=== PATIENT | female | born 1940 | race Caucasian/White ===

== ENCOUNTER 2020-07-26 11:30 | Emergency (ER) | payer MEDICARE, OTHER, SELFPAY ==
[2020-07-26 11:41] VITALS: BP 159/58; PULSE 71; RESP 20; TEMP 36.6; O2SAT 100
--- NOTE | 2020-07-26 12:22 | PC.NURSE ---
Bethanie Encarnacion NP spoke with Adriana at [facility]
--- NOTE | 2020-07-26 12:23 | ED.GENADULT ---
HPI - General Adult General Chief complaint: Unspecified Stated complaint: took her pets medication Source: patient Mode of arrival: ambulatory Limitations: no limitations History of Present Illness HPI narrative: Patient presents for evaluation after she unintentionally took a capsule of her dog's medication this morning. She indicates that her dog has an underlying history of Pageton's and is currently on trilostane 30mg. Patient was in attention and to her dog's medication, thinking that it was her own. Total intake was 30 mg, which occurred about 1 hour ago. Patient reports feeling fuzzy but denies any chest pain, shortness of breath, nausea, vomiting, loss of appetite. She denies any other concerning symptoms. She contacted the dog's top executive who advised that she reach out to a medical professional to determine whether she needs any type of diagnostic testing or intervention. Related Data Home Medications Medication Instructions Recorded Confirmed apixaban 5 mg tablet 5 mg PO BID 08/06/19 07/26/20 diltiazem HCl 120 mg capsule,24 120 mg PO DAILY 08/06/19 07/26/20 hr,extended release lisinopril 5 mg tablet 5 mg PO DAILY 08/06/19 07/26/20 pantoprazole 40 mg tablet,delayed 40 mg PO QAM 08/06/19 07/26/20 release sotalol 80 mg tablet 80 mg PO BID tablet 08/06/19 07/26/20 rosuvastatin 5 mg tablet 5 mg PO DAILY 05/07/20 07/26/20 Allergies Allergy/AdvReac Type Severity Reaction Status Date / Time Sulfa (Sulfonamide Allergy Mild Unknown Verified 05/07/20 15:03 Antibiotics) Review of Systems Review of Systems: Narrative: CONSTITUTIONAL: Denies fever, chills, or sweats. EYES: Denies visual changes, redness, or discharge. ENT: Denies rhinorrhea, congestion, sore throat, or otalgia. CARDIOVASCULAR: Denies chest pain, palpitations, or edema. RESPIRATORY: Denies cough or dyspnea. GASTROINTESTINAL: Denies abdominal pain, nausea, vomiting, or diarrhea. GENITOURINARY: Denies dysuria or hematuria. SKIN: Denies rash or itching. MUSCULOSKELETAL: Denies back pain, joint pain, or myalgia. NEUROLOGIC: Reports feeling fuzzy . Denies headache, numbness, dizziness, or weakness. PSYCHIATRIC: Denies anxiety or depression. [facility] Past Medical History Medical History (Updated 07/26/20 @ 12:34 by MARY PlunkettP, ) Atrial fibrillation Hyperlipidemia Hypertension Lumbar spinal stenosis Thyroid nodule Surgical History Surgical History History of hysterectomy Family History Family History Mother Hypertension Sibling Acute myocardial infarction Father Family history of lung cancer Social History Social History Smoking status: Former smoker Second hand tobacco smoke exposure: No Smoking end date: 09/18/71 Alcohol intake: current Substance use: never Substance use type: does not use Gender identity (if verbalized by the patient): Female Spiritual care concerns: No Agree to blood products: Yes Exam Narrative: Exam Narrative: GENERAL: Well-appearing, well-nourished, and in no acute distress. HEAD: Normocephalic, atraumatic. EYES: PERRLA and EOMI. ENT: Nares clear, no rhinorrhea or epistaxis. Mucous membranes moist. Oropharynx without tonsillar hypertrophy exudate or other lesions. Bilateral TMs pearly rossi nonbulging NECK: Supple. No adenopathy or masses. No carotid bruits or JVD CHEST: Clear to auscultation. No respiratory distress. No wheezes rales or rhonchi HEART: Regular rate and rhythm. No murmur heard. Normal peripheral pulses. ABDOMEN: Soft, nontender, nondistended, normal active bowel sounds. EXTREMITIES: Normal range of motion. No edema. SKIN: Warm, dry, no rash. NEURO: No focal deficits. Alert and oriented x3. PSYCH: Normal mood and affect. Course Course Emergency Course: Spoke with macho
--- NOTE | 2020-07-26 12:26 | PC.NURSE ---
Adriana at poison control no treatment needed
== END 2020-07-26 12:36 | disposition home or self-care (01) ==
PROVIDERS: Emergency Provider Nurse Practitioner; PCP Family Medicine
DX: T38 Poisoning by, adverse effect of and underdosing of hormones and their synthetic substitutes and antagonists, not elsewhere classified (principal); I48.91 Unspecified atrial fibrillation; E78.5 Hyperlipidemia, unspecified; I10 Essential (primary) hypertension; M48.061 Spinal stenosis, lumbar region without neurogenic claudication; Z87.891 Personal history of nicotine dependence
CPT/HCPCS: 99211; G0463

== ENCOUNTER 2021-04-01 11:44 | Outpatient (CLI) | payer MEDICARE, OTHER, SELFPAY ==
--- NOTE | ~2021-04-01 | XR_ITS ---
EXAMINATION: XR chest 2V DATE: 04/01/2021 12:02 INDICATION: Shortness of breath. TECHNIQUE: Frontal and lateral views of the chest were obtained. COMPARISON: Chest 2 views 03/11/2019 FINDINGS: The chest demonstrates clear lungs without pneumonia, pleural effusion, or pneumothorax. Th e heart size is normal. There are prominent paracardial fat pads. IMPRESSION: 1. No acute cardiopulmonary disease. Reviewed, dictated and finalized at location A.
== END 2021-04-01 11:45 | disposition home or self-care (01) ==
PROVIDERS: PCP Family Medicine; Visit Provider Physician Assistant
DX: R06.02 Shortness of breath (principal)
CPT/HCPCS: 71046

== ENCOUNTER 2021-09-27 14:54 | Emergency (ER) | payer MEDICARE, OTHER, SELFPAY ==
[2021-09-27] VITALS (9 sets, daily range): BP systolic 176–220; BP diastolic 48–78; PULSE 57–78; RESP 18; TEMP 36.2–36.3; O2SAT 97–100
--- NOTE | ~2021-09-27 | CT_ITS ---
EXAMINATION: CTA brain carotid DATE: 09/27/2021 21:05 INDICATION: Dizziness and posterior headache TECHNIQUE: Computed tomographic angiography (CTA) of the head was performed without and with 100 mL O mnipaque-350 intravenous contrast. CTA of the neck was performed with intravenous contrast. The dose- length product was 1472.08 mGy-cm. Maximum intensity projection and volume rendered 3D-reconstruction s were created by the technologist on a separate workstation. Automated exposure control and iterativ e reconstruction technique were employed. COMPARISON: None. FINDINGS: HEAD CTA: There is no acute intraparenchymal hemorrhage. No evidence of mass lesion. No evidence of a cute infarction. There is mild periventricular and subcortical hypodensity probably related to small vessel ischemic disease. There is mild prominence of the sulci and ventricles related to cerebral atr ophy. Intracranial calcified cerebral atherosclerosis is noted. There are no extra-axial collections. There is no mass effect or midline shift. The orbits and soft tissues are unremarkable. The visualiz ed sinuses and mastoid air cells are well aerated. There is no significant stenosis of the basilar artery or posterior cerebral arteries. There is no si gnificant stenosis of the intracranial internal carotid arteries or the anterior or middle cerebral a rteries. The anterior communicating artery and posterior communicating arteries are normal. There is no aneurysm. NECK CTA: The thyroid gland is unremarkable. The submandibular and parotid glands are symmetric. Ther e is no lymphadenopathy. There are no masses identified. The airway is unremarkable. There is is mode rate thoracic spondylosis. The superior mediastinum is unremarkable. There is 0% stenosis of the proximal right internal carotid artery relative to normal distal artery l umen diameter (NASCET criteria). There is 0% stenosis of the proximal left internal carotid artery re lative to normal distal artery lumen diameter. IMPRESSION: 1. No acute intracranial abnormality. Normal head CTA. 2. 0% stenosis of the proximal right internal carotid artery relative to normal distal artery lumen d iameter (NASCET criteria). 3. 0% stenosis of the proximal left internal carotid artery relative to normal distal artery lumen di ameter. Reviewed, dictated and finalized at location F. IALIST FIELD ENGINEER IMPRESSION: 1. No acute intracranial abnormality. Normal head CTA. 2. 0% stenosis of the proximal right internal carotid artery relative to normal distal artery lumen diameter (NASCET criteria). 3. 0% stenosis of the proximal left internal carotid artery relative to normal distal artery lumen diameter.
--- NOTE | 2021-09-27 18:53 | ECG_ITS ---
Measurements Intervals Nimitz Rate: 60 P: 74 GA: 184 QRS: 19 QRSD: 78 T: -10 QT: 458 QTc: 458 Interpretive Statements SINUS RHYTHM BORDERLINE T WAVE ABNORMALITY- ANTEROLAT/INF LEADS BASELINE WANDER- I, II, III, V3 BORDERLINE ECG Electronically Signed On 09-27-2021 20:05:33 ELEVATOR RUNNER by Jackson Razo D.O.
--- NOTE | 2021-09-27 19:00 | PC.NURSE ---
Assuming care of pt.
--- NOTE | 2021-09-27 19:01 | PC.NURSE ---
States i just took my bp meds
[2021-09-27] MEDS: ONDANSETRON INJ 4 MG/2 ML VIAL IV PUSH (19:10)
--- NOTE | 2021-09-27 19:23 | ED.DIZZY ---
HPI - Dizziness General Chief Complaint: Dizziness Stated Complaint: nausea/bonilla/nausea/fall months ago Time Seen by Provider: 09/27/21 18:35 Source: patient, RN notes reviewed and old records reviewed Mode of arrival: ambulatory Limitations: no limitations History of Present Illness HPI Narrative: This is an 80 year old female with history of hypertension, atrial fibrillation on chronic anticoagulation who presents for evaluation of posterior headache. Patient states 2-3 months ago she fell backwards hitting the back of her head. She had LOC after that fall but she was not evaluated after her fall. For the past 2 months, she has been having left posterior head pain when she tries to lay back. She also reports dizziness and nausea with laying back. She denies neck pain, focal weakness, numbness or tingling. She also denies visual changes or diplopia. She denies chest pain, cough, sinus congestion or drainage. She reports taking Tylenol causes her head pain to resolve. Related Data Home Medications Medication Instructions Recorded Confirmed apixaban 5 mg tablet 5 mg PO BID 08/06/19 04/01/21 diltiazem HCl 120 mg capsule,24 120 mg PO DAILY 08/06/19 04/01/21 hr,extended release lisinopril 5 mg tablet 5 mg PO DAILY 08/06/19 04/01/21 pantoprazole 40 mg tablet,delayed 40 mg PO QAM 08/06/19 04/01/21 release sotalol 80 mg tablet 80 mg PO BID tablet 08/06/19 04/01/21 rosuvastatin 5 mg tablet 5 mg PO DAILY 05/07/20 04/01/21 Allergies Allergy/AdvReac Type Severity Reaction Status Date / Time Sulfa (Sulfonamide Allergy Mild Hives Verified 09/27/21 19:05 Antibiotics) Review of Systems Review of Systems: All systems reviewed & are unremarkable except as noted in HPI and below PMFSH Past Medical History Medical History (Updated 09/28/21 @ 00:00 by Kerry Ambrocio) Atrial fibrillation Hyperlipidemia Hypertension Lumbar spinal stenosis Thyroid nodule Surgical History Surgical History History of hysterectomy Family History Family History Mother Hypertension Sibling Acute myocardial infarction Father Family history of lung cancer Social History Social History Smoking status: Never smoker Second hand tobacco smoke exposure: No Smoking end date: 09/18/71 Alcohol intake: current Alcohol use details: Rarely. Substance use: never Substance use type: does not use Gender identity (if verbalized by the patient): Female Sexual Orientation (if Verbalized by the Patient): Straight or Heterosexual Spiritual care concerns: No Agree to blood products: Yes Exam Const: General: no acute distress and alert Orientation/consciousness: patient oriented x3 HENMT: Head: normocephalic and atraumatic Ears: TM's normal bilaterally General nose exam: Normal external nose present, Normal nares present and No nasal polyps present Face and sinus: normal facial exam, sinuses nontender and face symmetric Mouth: Yes Normal oral and palatal mucosa present, Yes lip normal, Yes oropharynx normal and Yes moist mucous membranes Throat: posterior oropharynx normal Eyes: Pupils: Equal, round and reactive pupils present EOM: EOMs intact bilaterally Neck: Neck: normal visual inspection Chest: Chest palpation & inspection: normal inspection of the chest Resp: Effort & Inspection: normal respiratory effort and no retractions Auscultation: clear to auscultation bilaterally Cardio: Rate: regular rate Rhythm: regular rhythm Heart sounds: no murmurs GI: GI Palp: Yes Soft to palpation, No Tenderness to palpation present (GI) and No Guarding due to palpation present (GI) Auscultation: normal bowel sounds Back/Spine/Pelvis: Back: no CVA tenderness Skin: General skin exam: normal color Rashes: no rashes Neuro: General: jw
[2021-09-27 19:39] LABS: Basophils Percent Auto 0.3 % (0.2-1.2); Eosinophils Absolute Auto 0.1 K/mm3 (0-0.3); Eosinophils Percent Auto 0.8 % (0-4.4); Hematocrit 45.2 % (37.0-47.0); Hemoglobin 15.3 g/dL (12.0-15.0); Immature Granulocyte Absolute 0.03 K/mm3 (0.00-0.031); Immature Granulocyte Percent A 0.3 % (0-0.5); Lymphocytes Percent Auto 33.6 % (18.3-44.2); Mean Corpuscular HGB Conc 33.8 g/dl (32-36); Mean Corpuscular Hemoglobin 31.9 pg (26-34); Mean Corpuscular Volume 94.4 fl (80-100); Monocytes Absolute Auto 0.7 K/mm3 (0.1-0.6); Monocytes Percent Auto 7.5 % (2.6-8.5); Neutrophils Absolute Auto 5.3 K/mm3 (1.3-6.7); Neutrophils Percent Auto 57.5 % (45.5-73.1); Platelet Count Result 189 k/mm3 (150-375); Red Blood Count 4.79 M/mm3 (4.2-5.4); Red Cell Distribution Width 14.6 % (11.5-14.5); White Blood Count 9.2 K/mm3 (4.5-10.0)
[2021-09-27 20:31] LABS: Alanine Aminotransferase 21 U/L (4-35); Alkaline Phosphatase 64 U/L (38-126); Anion Gap 10 mmol/L (8-16); Aspartate Amino Transferase 34 U/L (14-36); Bilirubin,Total 0.8 mg/dL (0.2-1.3); Blood Urea Nitrogen 11 mg/dL (7-17); Calcium 9.4 mg/dL (8.4-10.2); Carbon Dioxide 21 mmol/L (22-30); Chloride 104 mmol/L (98-107); Estimated CRCL calculation 36 ml/min; Estimated Glomerular Filt Rate 60; Glucose 109 mg/dL (65-110); Lipase 76 U/L (23-300); Potassium 3.9 mmol/L (3.4-5.0); Sodium 135 mmol/L (137-145)
[2021-09-27 20:32] LABS: INR 1.5; Prothrombin Time 18.2 Seconds (11.1-14.7)
[2021-09-27 20:33] LABS: Partial Thromboplastin Time 33.6 SECONDS (22.3-36.8)
[2021-09-27 20:43] LABS: Troponin I < 0.012 ng/mL (0.000-0.034)
[2021-09-27 22:12] LABS: Add Urine Microscopic? YES; Appearance Urine Clear (Clear); Bacteria Urine Trace /hpf; Bilirubin Urine Negative (Negative); Blood Urine 1+ (Negative); Color Urine Yellow (Yellow); Glucose Urine UA Negative (Negative); Ketones Urine 1+ mg/dL (Negative); Leukocyte Esterase Ur Negative LEU/UL (Negative); Mucus Urine Rare /lpf; Nitrate Urine Positive (Negative); Protein Urine Negative (Negative); RBC Urine 0-2 /hpf (0-2); Squamous Epithelial Cell Urine Occasional /hpf (Few); Urobilinogen Urine Negative mg/dL (<2.0)
[2021-09-27 22:13] LABS: Specific Grav Ur 1.045 (1.001-1.035)
[2021-09-27] MEDS: NITROFURANTOIN MONOHYD MACROCR 100 MG CAP PO (22:48)
[2021-09-27] MEDS: MECLIZINE HCL 25 MG TABLET PO (22:48)
== END 2021-09-27 23:13 | disposition home or self-care (01) ==
PROVIDERS: Emergency Provider General Practice; PCP Family Medicine
DX: I10 Essential (primary) hypertension (principal); R42 Dizziness and giddiness; N39.0 Urinary tract infection, site not specified; I48.91 Unspecified atrial fibrillation; E78.5 Hyperlipidemia, unspecified; Z79.01 Long term (current) use of anticoagulants; R94.31 Abnormal electrocardiogram [ECG] [EKG]
CPT/HCPCS: 36415; 70496; 70498; 80053; 81001; 83690; 84484; 85025; 85610; 85730; 87077; 87086; 87186; 93005; 96374; 96375; 99284; A9270; J0131; J2405; Q9967

== ENCOUNTER 2021-10-15 09:09 | Day surgery (SDC) | payer MEDICARE, OTHER, SELFPAY ==
[2021-10-15] VITALS (12 sets, daily range): BP systolic 129–174; BP diastolic 45–69; PULSE 57–66; RESP 13–20; TEMP 37.2; O2SAT 98–100; BMI 27.4; BMI 27.5
[2021-10-15] MEDS: SODIUM CHLORIDE 0.9% IV 500 ML 100 ML IV CONT (09:45)
[2021-10-15 09:57] LABS: Basophils Absolute Auto 0.1 K/mm3 (0.0-0.1); Basophils Percent Auto 0.5 % (0.2-1.2); Eosinophils Absolute Auto 0.1 K/mm3 (0-0.3); Eosinophils Percent Auto 0.8 % (0-4.4); Hemoglobin 14.5 g/dL (12.0-15.0); Immature Granulocyte Absolute 0.04 K/mm3 (0.00-0.031); Immature Granulocyte Percent A 0.4 % (0-0.5); Lymphocytes Absolute Auto 2.44 K/mm3 (0.9-3.2); Lymphocytes Percent Auto 24.8 % (18.3-44.2); Mean Corpuscular Hemoglobin 31.7 pg (26-34); Mean Corpuscular Volume 96.1 fl (80-100); Monocytes Absolute Auto 0.7 K/mm3 (0.1-0.6); Neutrophils Absolute Auto 6.5 K/mm3 (1.3-6.7); Neutrophils Percent Auto 66.5 % (45.5-73.1); Platelet Count Result 236 k/mm3 (150-375); Red Blood Count 4.58 M/mm3 (4.2-5.4); Red Cell Distribution Width 14.9 % (11.5-14.5); White Blood Count 9.8 K/mm3 (4.5-10.0)
--- NOTE | 2021-10-15 09:58 | WPDHPUPDATE1 ---
History and Physical Update Update Date/Time: 10/15/21 09:58 History and Physical has been reviewed, including an updated exam of the patient. There are NO changes in the patient's condition. Risks, benefits, and alternatives have been discussed and questions answered. Patient agrees to proceed with procedure.
--- NOTE | 2021-10-15 09:58 | WPDMODSED ---
Moderate Sedation Note-Pt Data Patient Data Diagnosis: Abnormal stress test, angina Present Complaint: none Procedure to be performed/Plan: left heart catheterization with selective left and right coronary angiography with left ventriculography and hemodynamics and possible percutaneous intervention and stent implantation. Allergies Allergy/AdvReac Type Severity Reaction Status Date / Time Sulfa (Sulfonamide Allergy Mild Hives Verified 10/15/21 09:38 Antibiotics) Home Medications Medication Instructions Recorded Confirmed Type apixaban 5 mg tablet 5 mg PO BID 08/06/19 10/15/21 History diltiazem HCl 120 mg capsule,24 120 mg PO DAILY 08/06/19 10/15/21 History hr,extended release lisinopril 5 mg tablet 10 mg PO DAILY 08/06/19 10/15/21 History pantoprazole 40 mg tablet,delayed 40 mg PO QAM 08/06/19 10/13/21 History release sotalol 80 mg tablet 80 mg PO BID tablet 08/06/19 10/15/21 History rosuvastatin 5 mg tablet 5 mg PO DAILY 05/07/20 10/13/21 History Current Medications: Active Medications Sodium Chloride (Normal Saline Iv) 500 mls @ 100 mls/hr IV CONT .Q5H KAYLAH Sedation/Anesthesia: No previous sedation/anesthesia problems (including family history). [facility] Past Medical History Medical History Atrial fibrillation Cervical spondylosis Hyperlipidemia Hypertension Lumbar spinal stenosis Thyroid nodule Surgical History Surgical History History of hysterectomy Family History Family History Mother Hypertension Sibling Acute myocardial infarction Father Family history of lung cancer Social History Social History Years smoked: 8 Tobacco type: cigarettes Second hand tobacco smoke exposure: Yes (father smoked) Smoking end date: 09/18/71 Alcohol intake: current Alcohol use details: Rarely. Substance use: never Substance use type: does not use Living arrangements: with family Gender identity (if verbalized by the patient): Female Sexual Orientation (if Verbalized by the Patient): Straight or Heterosexual Spiritual care concerns: No Agree to blood products: Yes Mod Sed Physical Exam Physical Exam Pre Procedural Exam: Normal: Appearance, Eyes, Ears, Nose, Neck ( supple, normal range of motion), Throat ( posterior hypopharynx clear, nonerythematous), Airway ( normal anatomy, no obstruction), Lungs ( Clear to auscultation bilaterally), Heart Size, Heart Rate, Heart Rhythm, Neuro Exam, Abdomen, Liver, Extremities and Skin Hours since solid foods: 12 Hours since liquid intake: 12 Mallampati Classification: class III Internal Medicine - PN: Obj Da Meds/Results Medications: Active Medications Generic Name Dose Route Start Last Admin Trade Name Freq PRN Reason Stop Dose Admin Sodium Chloride 500 mls @ 100 mls/hr 10/15/21 08:00 Normal Saline Iv IV CONT .Q5H KAYLAH Labs CBC & Chem 7: 10/15/21 09:43 10/15/21 09:43 ASA Classification/Sedation ASA Classification/Sedation ASA Class: III Emergent: No Risks: Risks, benefits and alternatives explained and patient/family accepted plan for sedation. Patient re-evaluated immediately prior to sedation.
--- NOTE | 2021-10-15 10:00 | PM.OP ---
Procedure Note - Brief Procedure Note - Brief Date of procedure: 10/15/21 Pre-op diagnosis: abnormal stress test angina, abnormal stress test Post-op diagnosis: same Procedure performed: Left heart catheterization with selective left and right coronary angiography with left ventricular hemodynamics Description of procedure: BRIEF HISTORY OF PRESENT ILLNESS: Patient is a pleasant 80-year-old female with a past medical history significant for paroxysmal atrial fibrillation sotalol and Eliquis, hypertension, dyslipidemia, history of normal coronary anatomy 1987, heart catheterization, normal stress test 2018 with complaints of worsening fatigue, dyspnea and chest pain who underwent repeat Lexiscan nuclear stress test which revealed apical lateral and mid anterolateral reversible ischemia with abnormal EKG response consistent with ischemia. Options for escalation of antianginal medical management versus invasive angiography discussed and patient preferred to proceed with angiography given her level of concern. PROCEDURES PERFORMED: 1. Left heart catheterization 2. Selective left and right coronary angiography 3. Left ventricular hemodynamics 4. Moderate/conscious sedation administration CATHETERS UTILIZED: Left coronary system- 5 Finnish JL4 catheter Right coronary system- 5 Finnish JR4 catheter Left ventriculography and hemodynamics- 5 Finnish angled pigtail catheter PROCEDURE IN DETAIL: After verbal and written informed consent was obtained the patient, risks, benefits, and alternatives explained in detail the patient agreed to proceed with the plan of care as outlined above. The patient was subsequently brought to the cardiac catheterization lab, placed on the cardiac catheterization table, and prepped and draped in the usual sterile fashion. Utilizing approximately 12cc of 1% subcutaneous Lidocaine, the right groin was then locally anesthetized. Utilizing the modified Seldinger technique, a 5 Finnish arterial vascular access sheath was inserted in the right common femoral artery easily and without complications. Through this access, coronary angiography was subsequently obtained in multiple standard re-projections. Following this, a 5 Finnish angled pigtail catheter was advanced retrograde across aortic valve into the cavity of the left ventricle. Left ventriculography was not performed due to significant catheter induced NSVT and ventricular ectopy. Therefore, it was felt risk with advancement of pigtail catheter with left ventriculography outweighed the benefit so was deferred. As she tolerated placement of the pigtail catheter near the LVOT pressures were obtained and pullback across aortic valve was subsequently recorded. The vascular access sheath and angiographic catheters were flushed before and after catheter exchanges. At the conclusion of the diagnostic portion of the procedure, all angiographic guidewires and catheters were removed and the 5 Finnish arterial vascular access sheath was then pulled and satisfactory hemostasis was achieved using manual compression. There no complications noted at the conclusion of the diagnostic portion of the study. MODERATE SEDATION/ANESTHESIA ADMINISTRATION: Patient reports no prior problems with sedation/anesthesia. Please see pre-sedation noted for physical examination documentation. Sedation start time was 1039 and end time was 1059 for a total intra-service/procedure face-face time of 20 minutes. A total of 1 mg intravenous Versed and a total of 50 mcg intravenous Fentanyl was administered for moderate sedation. Moderate sedation was administered by qualified/certified observer Peter Eagle RN under my supervision with intra-procedure [id number] observation and management throughout the entirety of the procedure. There were no other issues or complications and patient tolerated the procedure well. See post-anesthesia documentation. Anesthesia: regional and other ( Moderate/conscious sed
[2021-10-15 10:07] LABS: Anion Gap 5 mmol/L (8-16); Blood Urea Nitrogen 16 mg/dL (7-17); Calcium 9.6 mg/dL (8.4-10.2); Carbon Dioxide 29 mmol/L (22-30); Chloride 105 mmol/L (98-107); Estimated CRCL calculation 41 ml/min; Estimated Glomerular Filt Rate > 60; Glucose 136 mg/dL (65-110); Potassium 4.1 mmol/L (3.4-5.0); Sodium 139 mmol/L (137-145)
[2021-10-15 10:11] LABS: INR 0.9; Prothrombin Time 12.3 Seconds (11.1-14.7)
[2021-10-15] MEDS: SODIUM CHLORIDE 0.9% IV 1,000 ML 125 ML IV CONT (11:45)
--- NOTE | 2021-10-15 15:05 | SUR.PHASEII ---
notified of d/c time and location.
== END 2021-10-15 15:58 | disposition home or self-care (01) ==
PROVIDERS: PCP Family Medicine; Visit Provider Internal Medicine Cardiovascular Disease
PROC: 4A023N7 Measurement of Cardiac Sampling and Pressure, Left Heart, Percutaneous Approach (ICD-10-PCS; CPT 93452; principal; 2021-10-15 10:00)
DX: R94.39 Abnormal result of other cardiovascular function study (principal); Q24.5 Malformation of coronary vessels; Z79.01 Long term (current) use of anticoagulants; I10 Essential (primary) hypertension; I25.10 Atherosclerotic heart disease of native coronary artery without angina pectoris; R53.83 Other fatigue; R07.89 Other chest pain; M47.812 Spondylosis without myelopathy or radiculopathy, cervical region; E78.5 Hyperlipidemia, unspecified; M48.061 Spinal stenosis, lumbar region without neurogenic claudication; E04.9 Nontoxic goiter, unspecified; F17.210 Nicotine dependence, cigarettes, uncomplicated; R06.02 Shortness of breath; M79.89 Other specified soft tissue disorders
CPT/HCPCS: 36415; 80048; 85025; 85610; 93458; C1887; C1894; J1644; J2250; J3010; J7030; J7040

== ENCOUNTER → 2022-03-22 12:57 | Outpatient (CLI) | payer MEDICARE, OTHER, SELFPAY ==
--- NOTE | ~2022-03-22 | MR_ITS ---
EXAMINATION: MR lumbar spine wo con DATE: 03/22/2022 13:40 INDICATION: Spinal stenosis. Lumbar radiculopathy. TECHNIQUE: Magnetic resonance imaging (MRI) of the lumbar spine was performed without intravenous con trast. Sequences included sagittal T2-weighted FSE, sagittal T2-weighted FS FSE, sagittal T1-weighted FSE, and axial T2-weighted FSE. COMPARISON: 10/18/2017 FINDINGS: 3 mm retrolisthesis L2 on L3, 2 mm anterolisthesis L3 on L4, 5 mm anterolisthesis L4 on L5, and 3-4 m m retrolisthesis L5 on S1. Mild likely physiologic anterior wedging at T11 and T12. Lumbar vertebral body heights are normal. Normal marrow signal. Moderate loss of disc height at T11-T12, T12-L1 and L 4-L5 and L5-S1. Mild disc height loss at L2-L3, L3-L4 and L5-S1. The conus medullaris terminates at L 1-L2. There is normal signal in the caudal spinal cord. Bilateral T2 hyperintense renal cysts the lar gest and at least 4.3 cm partially visualized left renal cyst there is fatty atrophy of the lumbar an d lower thoracic paraspinal musculature, right greater than left at the level of the upper lumbar spi ne. The following disc levels are specifically discussed: T12-L1: Disc is bulging. There is mild left and mild to moderate right facet joint osteoarthritis. Th ere is no neural foraminal stenosis. There is mild central canal stenosis. L1-L2: The disc does not extend beyond the endplate margin. There is mild left and mild to moderate r ight facet joint osteoarthritis. There is no neural foraminal stenosis. There is no central canal cindy nosis. L2-L3: Disc is bulging. There is hypertrophy of the ligamentum flavum. There is mild right and minima l left facet joint osteoarthritis. There is mild to moderate bilateral neural foraminal stenosis. The re is mild central canal stenosis. L3-L4: Disc is bulging with superimposed annular fissure and small left paracentral disc extrusion wi th disc material extending up to 9 mm cephalad to the level of the inferior endplate of L3. There is hypertrophy of the ligamentum flavum. There is severe bilateral facet joint osteoarthritis. There is mild to moderate bilateral neural foraminal stenosis. There is moderate to severe central canal sten osis. L4-L5: Disc is bulging. There is hypertrophy of the ligamentum flavum. There is severe bilateral fac et joint osteoarthritis. There is moderate bilateral neural foraminal stenosis. There is severe centr al canal stenosis. L5-S1: Disc is bulging with superimposed annular fissure and right paracentral disc extrusion with di sc material extending 9 mm caudal to the level of the superior endplate of S1. There is moderate righ t and mild to moderate left facet joint osteoarthritis. There is moderate right and mild to moderate left neural foraminal stenosis. There is mild central canal stenosis. IMPRESSION: 1. Moderate to severe lumbar and lower thoracic spondylosis most notable for 5 mm anterolisthesis L4 on L5 and severe associated central canal stenosis. Reviewed, dictated and finalized at location A.
== END ==
PROVIDERS: PCP Family Medicine; Visit Provider Family Medicine
DX: M48.061 Spinal stenosis, lumbar region without neurogenic claudication (principal); M47.26 Other spondylosis with radiculopathy, lumbar region; M47.894 Other spondylosis, thoracic region
CPT/HCPCS: 72148

== ENCOUNTER 2022-07-08 10:49 | Outpatient (CLI) | payer MEDICARE, OTHER, SELFPAY ==
--- NOTE | ~2022-07-08 | US_ITS ---
EXAMINATION: US aorta DATE: 07/08/2022 12:08 INDICATION: Abdominal aortic pulsation. TECHNIQUE: Grayscale, color Doppler, and pulsed Doppler images of the aorta and common iliac arteries were obtained. COMPARISON: None. FINDINGS: The proximal aorta measures 2.4 cm. The mid aorta measures 1.7 cm. The distal aorta measures 1.2 cm. The right common iliac artery measures 9 mm. The left common iliac artery measures 9 mm. IMPRESSION: 1. Normal caliber abdominal aorta. Reviewed, dictated and finalized at location A.
== END 2022-07-08 10:50 | disposition home or self-care (01) ==
LOC: ANHIMG 10:53
PROVIDERS: PCP Family Medicine; Visit Provider Physician Assistant Medical
DX: R10.13 Epigastric pain (principal); R09.89 Other specified symptoms and signs involving the circulatory and respiratory systems
CPT/HCPCS: 76775

== ENCOUNTER → 2023-04-11 13:44 | Outpatient (CLI) | payer MEDICARE, OTHER, SELFPAY ==
--- NOTE | ~2023-04-11 | DEXA_ITS ---
Bone Density Report Name: EVELYN VERONICA V Age: 82 Sex: Female Ethnicity: White Date of : 1940 Indication: postmenopausal; screening for osteoporosis; height loss; hysterectomy; Referring Provider: INO ARMENTA Study: Bone densitometry was performed. Exam Date: April 11, 2023 Accession number: [id number] Bone Density: Region BMD T-score Z-score Classification AP Spine (L1-L4) 1.224 1.6 4.4 Normal Femoral Neck (Left) 0.844 0.0 2.4 Normal Total Hip (Left) 0.995 0.4 2.6 Normal Femoral Neck (Right) 0.809 -0.4 2.1 Normal Total Hip (Right) 0.949 0.1 2.2 Normal Total Hip Mean 0.972 0.3 2.4 Normal World Health Organization criteria for BMD impression classify patients as: Normal (T-score at or above -1.0), Osteopenia (T-score between -1.0 and -2.5), or Osteoporosis (T-score at or below -2.5). 10-year Fracture Risk: FRAX not reported because: All T-scores for Spine Total, Hip Total, Femoral Neck at or above -1.0 Clinical Information Provided by Patient: Has the following medical conditions: Hysterectomy Patient maximum height was 62 Menopause Age: 46 No regular weight bearing exercise Onset of menses at age 11 Number of children 2 Impression: The patient has normal bone mass. Discussion: LOW RISK OF FRACTURE; BONE DENSITY IS WELL ABOVE THE MINIMUM DESIRABLE LEVEL AND ABOVE AVERAGE FOR AGE AND SEX AT ALL SKELETAL SITES TESTED. This person's bone density is above expected limits for age and sex. This is rarely clinically significant, but should be pursued if there are significant musculoskeletal complaints. The patient should follow a healthful lifestyle (good nutrition with adequate calcium and vitamin D, and appropriate weight-bearing exercise). Follow-Up: Consider repeating this study in 5 years or sooner if there is some new clinical indication. Reported by: [facility] on 04/11/2023 2:13:00 PM. Reviewed, dictated and finalized at location AHeather BREWER
== END ==
PROVIDERS: PCP Family Medicine; Visit Provider Family Medicine
DX: Z78.0 Asymptomatic menopausal state (principal)
CPT/HCPCS: 77080

== ENCOUNTER 2023-08-30 12:30 | Outpatient (RCR) | payer MEDICARE, OTHER, SELFPAY ==
--- NOTE | 2023-07-25 15:30 | OPREHPOC ---
Outpatient Therapy Plan of Care This is a Multidisciplinary Plan of Care that may contain components documented by all disciplines (PT, OT, and ST.) PT Problem 1 PT Problem #1 Knowledge Deficit PT Goal 1 Goal 1*indep with HEP PT Problem 2 PT Problem #2 Pain PT Goal 1 Goal 1* pt report cervical pain 4/10 at worst PT Problem 3 PT Problem #3 Impaired Flexibility PT Goal 1 Goal pt perform 3 reps without an increase in pain, cervical ROM in sittin* extension 2* rotation R 3* rotation L PT Problem 4 PT Problem #4 Impaired Strength PT Goal 1 Goal increase cervical thoracic strength: 1* pt able to sit unsupported x 20 seconds 2* pt perform 10 reps of sitting strengthening exercises --------- 3* monitor vestibular system during sessions and treatment as indicated
--- NOTE | 2023-07-25 15:31 | PTOPEVAL1 ---
Assessment and note entered by Angelika Grande, PT Evaluation Information Assessment Status Evaluation Diagnosis dizziness Onset March 2023 Subjective Information no recent trauma or injury, just started having problems with looking up to move drapes; have seen investigations manager cleared her with meds and check up recently; had CTA of head was negative; about 1 year ago, fell and hit her head on concrete; general dr- looked at her ears and sent her for therapy; symptoms: dizzy increase with looking up, quickly turn head to R or L, bend forward OK with watching TV, up/down stairs; decreased with hold head neutral and stay still ACTIVITY: use cane for walking all the time; indep with self care; more problems with home tasks--is looking for house keeper assist; she is not able to do heavier tasks, with reaching up with arms- cuts off her breathing and cannot do; vitals: pt reports she takes her BP at home, range of 125 to 165/ 51-80; sitting/rest 153/ 51 and HR 77; standing 132/64 Reported Pain Level Pain Score Self Report Additional Pain Score Comments pain range of 3-8/10 in neck; have migraines, 1-2 x/month sometimes with brushing her teeth, have pain in L jaw; goes to the dentist every 6 months for teeth cleaning; Assessment PT Clinical Summary Delisa has the diagnosis of vertigo. Her medical history includes neck pain, migraines, back pain, L jaw pain, fall with hitting her head on concrete about 1 year ago; She is taking 6 meds for: blood thinner, cholesterol, HTN, acid reflux; She uses a cane for walking and is unsteady; discussed wheeled walker with her and she may consider using it. With the evaluation: BPPV testing was negative; she has poor neck and trunk positioning with tightness over entire cervical-thoracic area, and painful motions of her n
--- NOTE | 2023-08-11 10:12 | PCPTNOTE ---
Patient called this morning to cancel secondary to feeling ill.
--- NOTE | 2023-08-30 13:37 | PTOPPROG ---
Assessment and note entered by Angelika Grande, PT Evaluation Information Assessment Status Progress Diagnosis dizziness Onset March 2023 Subjective Information having a bad day, overdid it yesterday and trying to do more; back is hurting more--to see pain management dr and get injections tomorrow; still having dizziness- when look up into cabinet or reach down to pet the dog; last few seconds then gone; vitals at rest, sitting: pulse 69, oxygen sat 100 % 127/47 ( reports last night before bedtime, her BP was 167/ 80, did not take it this AM, she has been monitoring at home) repeated vitals~ 10 min later 136/46; Assessment PT Clinical Summary Delisa has received 9 PT sessions for dizziness and cervical pain. She continues to have low back pain and weakness of trunk. Compared to the initial evaluation: pain has decreased from 3-8/10 to 0-6/10; continues to have pain with cervical extension, rotation to R and L ; cervical active motion ranges are about the same ; sitting balance without UE support has increase from 2 to 6 seconds; continues to have weakness of her UE's and trunk, with reports of cannot breathe when she sits up straight; continues to have spasms throughout cervical and upper traps areas; pain is decreased with the heat and manual therapy. She has been educated on HEP and sitting posture. The goals were partially met. Her back pain and decreased mobility are affecting her neck. She continues to have dizziness reports with leaning forward in standing and reaching up to her cabinets, feel that they are related to positional changes and BP changes: BP at rest is 136/46. Delisa is to see her pain management dr tomorrow. Discussed with her to request a PT order for her back, to include aquatic therapy to ease the movements and strengthening of her back and trunk. Will continue treatment for her neck and when back orders received, incorporate back treatment. Plan of Care Interventions Hot Pack/Cold Pack,Manual Therapy,Mechanical Traction,Neuro Re-education,Pat
--- NOTE | 2023-08-30 13:38 | OPREHPOC ---
Outpatient Therapy Plan of Care This is a Multidisciplinary Plan of Care that may contain components documented by all disciplines (PT, OT, and ST.) PT Problem 1 PT Problem #1 Knowledge Deficit PT Goal 1 Goal 1*indep with HEP Progress Met Comment 08-30-23 progress met goal continue towards goal to progress education PT Problem 2 PT Problem #2 Pain PT Goal 1 Goal 1* pt report cervical pain 4/10 at worst Progress Not Met Comment 08-30-23 progress improved but goal not met continue towards goal PT Problem 3 PT Problem #3 Impaired Flexibility PT Goal 1 Goal pt perform 3 reps without an increase in pain, cervical ROM in sittin* extension 2* rotation R 3* rotation L Progress Not Met Comment 08-30-23 progress goal not met continue towards goals PT Problem 4 PT Problem #4 Impaired Strength PT Goal 1 Goal increase cervical thoracic strength: 1* pt able to sit unsupported x 20 seconds 2* pt perform 10 reps of sitting strengthening exercises --------- 3* monitor vestibular system during sessions and treatment as indicated Progress Not Met Comment 08-30-23 progress goals not met continue towards goals
--- NOTE | 2023-09-20 12:37 | PCPTNOTE ---
Pt cancelled due to having a stroke.
--- NOTE | 2023-10-10 11:50 | PTOPDC ---
Assessment and note entered by Angelika Grande, PT Evaluation Information Assessment Status Discharge - Pt Not Present Diagnosis dizziness Onset March 2023 Assessment PT Clinical Summary Delisa has received 9 PT sessions, from Jul 25 to Aug 30. She called and canceled 2 appointments due to her being ill. Then did not call for any further appointments. Therefore, she will be discharged from PT at this time. The goals were not addressed. Plan of Care PT Services Indicated No
== END 2023-10-10 09:25 | disposition home or self-care (01) ==
LOC: ANHPT 12:30
PROVIDERS: PCP Family Medicine; Visit Provider Family Medicine
DX: R42 Dizziness and giddiness (principal)
CPT/HCPCS: 97014; 97110; 97140; 97162; 97530; G0283

== ENCOUNTER 2024-02-03 08:37 | Outpatient (CLI) | payer MEDICARE, OTHER, SELFPAY ==
--- NOTE | ~2024-02-03 | MR_ITS ---
EXAMINATION: MR lumbar spine wo con DATE: 02/03/2024 09:20 INDICATION: Lumbar radiculopathy. Chronic low back pain. TECHNIQUE: Magnetic resonance imaging (MRI) of the lumbar spine was performed without intravenous con trast. Sequences included sagittal T2-weighted FSE, sagittal T2-weighted FS FSE, sagittal T1-weighted FSE, and axial T2-weighted FSE. COMPARISON: Lumbar spine MRI 03/22/2022 FINDINGS: There is 3 mm retrolisthesis of T12 on L1 and L2 on L3, 3 mm anterolisthesis of L3 on L4, a nd 5 mm anterolisthesis of L4 on L5. There is mild chronic anterior wedging of T11 and T12 vertebral bodies. There is moderately decreased disc height at T11-T12 and T12-L1, severely decreased disc heig ht at L2-L3, moderately decreased disc height at L3-L4 and L4-L5, and severely decreased disc height at L5-S1. There is ligamentum flavum hypertrophy at the disc levels from L2-L3 through L4-L5. The dis santino spinal cord signal intensity is normal. The conus medullaris is at L1. There are cysts in the kid neys measuring up to 6.0 cm on the left. The following disc levels are specifically discussed: L1-L2: The disc does not extend beyond the endplate margin. There is moderate bilateral facet joint o steoarthritis. There is no neural foraminal stenosis. There is no central canal stenosis. L2-L3: The disc is bulging and has an annular fissure. There is mild bilateral facet joint osteoarthr itis. There is mild bilateral neural foraminal stenosis. There is mild central canal stenosis. L3-L4: The disc is bulging and has an annular fissure. There is severe bilateral facet joint osteoart hritis. There is mild bilateral neural foraminal stenosis. There is mild central canal stenosis. L4-L5: The disc is bulging and has an annular fissure. There is severe bilateral facet joint osteoart hritis. There is mild bilateral neural foraminal stenosis. There is severe central canal stenosis. L5-S1: The disc is bulging with superimposed right subarticular zone extrusion. There is severe right and mild left facet joint osteoarthritis. There is mild bilateral neural foraminal stenosis. There i s mild central canal stenosis. IMPRESSION: 1. Severe lumbar spondylosis, stable from 03/22/2022. Reviewed, dictated and finalized at location A.
== END 2024-02-03 08:38 ==
PROVIDERS: PCP Neurological Surgery; Visit Provider Physical Medicine & Rehabilitation Pain Medicine
DX: M54.16 Radiculopathy, lumbar region (principal); M43.06 Spondylolysis, lumbar region
CPT/HCPCS: 72148

== ENCOUNTER 2024-02-05 13:30 | Outpatient (RCR) | payer MEDICARE, OTHER, SELFPAY ==
--- NOTE | 2023-11-07 13:35 | OPREHPOC ---
Outpatient Therapy Plan of Care This is a Multidisciplinary Plan of Care that may contain components documented by all disciplines (PT, OT, and ST.) PT Problem 1 PT Problem #1 Knowledge Deficit PT Goal 1 Goal 1* indep with HEP 2* correct body mechanics with exercises PT Problem 2 PT Problem #2 Pain PT Goal 1 Goal 1* pt report back pain at worst of 5/10 2* radicular pain into R LE to knee at worst 3* radicular pain into L LE to mid thigh at worst 4* self assessment Oswestry score of 32% limitation in activity level PT Problem 3 PT Problem #3 Impaired Strength PT Goal 1 Goal increase strength to improve activity level and support to spine 1* 2 minute walking test distance of 300' 2* 5 reps sit/stand time of 24 seconds, without use of UE's 3* pt perform 20 reps of strengthening mat exercises 4* pt perform 40 minutes of aquatic exercises
--- NOTE | 2023-11-07 13:35 | PTOPEVAL1 ---
Assessment and note entered by Angelika Grande, PT Evaluation Information Assessment Status Evaluation Diagnosis lumbar spondylosis, lumbar radicular pain Onset 2016 Subjective Information chronic pain in back, continues to get worse; is not able to have surgery on her back; go to pain management dr--last injection Oct. cannot stand up straight, legs are weak, balance is not good; recent therapy for back pain--helped a little; ACTIVITY: use wheeled walker when going out of the house and cane in the house; assisting her PRN, recently disabled, she is now doing all cooking and home tasks; Reported Pain Level Pain Score Self Report Additional Pain Score Comments pain range in the past week: 1-8/10; intermittent into R LE to lateral ankle/ L to posterior thigh to distal knee; back is broken, cannot straighten it up increase pain: stand up straight; stand upright 2 minutes; walking 15- 20 min; reaching up with arms when in the kitchen decrease pain: sit, rest, tylenol PRN;heat, lie flat in bed is sleeping OK Assessment PT Clinical Summary Delisa has two orders from 2 different providers: lumbar spondylosis and vestibular rehab. She reports dizziness is almost gone and back is bothering her the most. Self assessment Oswestry rating 44% of limitation in activity level. Using the 4 wheeled walker helps her walk more and stand more upright. With the evaluation: she has radicular, intermittent into both legs R to ankle and L to below knee; decreased strength of trunk and legs; 5 reps sit/stand time of 34 seconds, 2 minute walking distance with wheeled walker of 225' with increase in back and leg pain; decreased flexibility of R and L hamstrings; Skilled PT services are indicated for aquatic and land therapy to increase ROM and strength; modalities for pain control and education for HEP and self management of c
--- NOTE | 2023-12-18 15:34 | PCPTNOTE ---
pt did not show for her reevaluation, called her and she had forgotten about the appt; she apologized and rescheduled appt.
--- NOTE | 2023-12-28 11:52 | OPREHPOC ---
Outpatient Therapy Plan of Care This is a Multidisciplinary Plan of Care that may contain components documented by all disciplines (PT, OT, and ST.) PT Problem 1 PT Problem #1 Knowledge Deficit PT Goal 1 Goal 1* indep with HEP 2* correct body mechanics with exercises Progress Met Comment 12-28-23 progress met goals continue to progress education and HEP PT Problem 2 PT Problem #2 Pain PT Goal 1 Goal 1* pt report back pain at worst of 5/10 2* radicular pain into R LE to knee at worst 3* radicular pain into L LE to mid thigh at worst 4* self assessment Oswestry score of 32% limitation in activity level Progress Not Met Comment 12-28-23 progress goals not achieved, continue towards goals PT Problem 3 PT Problem #3 Impaired Strength PT Goal 1 Goal increase strength to improve activity level and support to spine 1* 2 minute walking test distance of 300' 2* 5 reps sit/stand time of 24 seconds, without use of UE's 3* pt perform 20 reps of strengthening mat exercises 4* pt perform 40 minutes of aquatic exercises Progress Met Comment 12-28-23 progress met goals NEW GOALS: 1* static sit at edge of mat with upright trunk, without use of UE, for 30 seconds 2* static stand without use of UE and upright trunk x 60 seconds 3* 2 minute walking test distance of 375' with rollator walker 4* sit/stand 5 reps time of 19 seconds
--- NOTE | 2023-12-28 11:53 | PTOPPROG ---
Assessment and note entered by Angelika Grande, PT Progress Information Assessment Status Progress Diagnosis lumbar spondylosis, lumbar radicular pain Onset 2016 Subjective Information saw pain dr and have been referred to neurologist because legs are getting weaker; from therapy have improved with able to stand up better and walk better; have been trying to do the exercises as much as I can, but busy with and caring for him. back pain is less since got the shot, to have shot for R hip January 05; at home use the cane or nothing and when go out, use the rollator; want to continue therapy as long as I can; Assessment PT Clinical Summary Delisa has received 10 PT sessions. Compared to the initial evaluation: rating at low for pain from 1 to 0/10 and worst is same at 8/10 with radicular pain same into R and L LE; self assessment Oswestry rating from 44 to 40% limitation; 5 reps sit/stand time from 34 to 23 seconds; 2 minute walking test distance from 225' to 320' with rollator; increase LE and trunk strength--able to stand upright and sit upright without UE support; education for home exercises. The goals were partially met. Continue PT for land and aquatic to further increase strength and mobility skills. Plan of Care Interventions Aquatic Therapy,Electrical Stimulation,Hot Pack/ Cold Pack,Manual Therapy,Mechanical Traction,Neuro Re-education,Patient Education, Therapeutic Activities,Therapeutic Exercise, Ultrasound,Other Other Interventions zeenating, [facility] PT Services Indicated Yes Treatment Frequency and 2x/wk for 8 visits Duration These treatments will address the objective and functional deficits as defined above. The patient will be advanced safely and appropriately in order for the patient to progress towards his/her prior level of function. Additional exercises will be introduced and as well as a comprehensive home exercise program upon discharge, if needed, ?to ensure carryover of functional gains achieved in the clinic. This treatment plan has been reviewed and agreement upon by the patient.
--- NOTE | 2024-01-17 10:57 | PCPTNOTE ---
Appt provider cancelled.
--- NOTE | 2024-01-24 10:11 | PCPTNOTE ---
Patient called & cancelled scheduled appointment this date due to having to take to the doctor.
--- NOTE | 2024-02-06 08:17 | PCPTNOTE ---
This treatment is being continued on visit number [id number]. Please see documentation on both accounts to view progress. Completed interventions, outcomes, and problems have been marked as Inactive to facilitate the copying of the Care plan routine for recurring accounts.
== END 2024-02-05 23:59 | disposition home or self-care (01) ==
LOC: ANHPT 13:30
PROVIDERS: PCP Family Medicine; Referring Provider Physical Medicine & Rehabilitation; Visit Provider Family Medicine
DX: R42 Dizziness and giddiness (principal); M47.26 Other spondylosis with radiculopathy, lumbar region
CPT/HCPCS: 97014; 97110; 97113; 97140; 97161; 97530; 99199; G0283

== ENCOUNTER 2024-02-05 16:53 | Emergency (ER) | payer MEDICARE, OTHER, SELFPAY ==
--- NOTE | ~2024-02-05 | XR_ITS ---
EXAMINATION: XR chest 2V DATE: 02/05/2024 17:33 INDICATION: Shortness of breath TECHNIQUE: AP and lateral views of the chest were obtained. COMPARISON: Chest radiograph dated 04/01/2021 FINDINGS: The lungs remain clear with no focal airspace opacities, pulmonary edema, pleural effusion or pneumot horax. The cardiomediastinal silhouette is normal. Moderate thoracic spondylosis. IMPRESSION: 1. No acute cardiopulmonary disease. Reviewed, dictated and finalized at location A.
--- NOTE | 2024-02-05 17:04 | ED.GENADULT ---
HPI - General Adult General Chief complaint: Weakness <Eli River January, OLEOMARGARINE MAKER - Last Filed: 02/05/24 17:18> Stated complaint: weakness <Eli River January, OLEOMARGARINE MAKER - Last Filed: 02/05/24 17:18> Time Seen by Provider: 02/05/24 17:04 <Eli River January, OLEOMARGARINE MAKER - Last Filed: 02/05/24 17:18> Focused HPI: Delisa Connolly is an 83 y/o female with reports of having bilateral weakness to both lower extremities that started about 2 weeks ago she let her Pain MD and she ordered an MRI of the lumbar spine on 02/02, a couple days ago she has also felt increased weakness to her arms too. She went to physical therapy today they noticed that her legs were weaker and arms are weaker She went to her PCP office today and they sent her here to make sure she isn't having a stroke or heart attack with this progressive weakness She also states that she has been getting off and on nausea for a few days Denies pain anywhere/ no recent falls or trauma/ denies any fevers/ chills/ reports maybe some more SOB with walking up stairs She is on Eliquis She states that after she had a BM today and noticed blood when she wiped GENERAL: Well-appearing, well-nourished, and in no acute distress. HEAD: Normocephalic, atraumatic. CHEST: Clear to auscultation. ?No respiratory distress. HEART: Regular rate and rhythm.? NEURO: ?Alert and oriented x3. Patient screened in triage and initial orders placed.? ?Additional care and disposition to be based upon?diagnostic testing and treatment. <Eli River January, OLEOMARGARINE MAKER - Last Filed: 02/05/24 17:18> Focused HPI: Delisa Connolly is an 83 y/o female with reports of having bilateral weakness to both lower extremities that started about 2 weeks ago she let her Pain MD and she ordered an MRI of the lumbar spine on 02/02, a couple days ago she has also felt increased weakness to her arms too. She went to physical therapy today they noticed that her legs were weaker and arms are weaker Patient's MRI showed significant disc height loss throughout her thoracic and lumbar spine. Patient admits that she has an upcoming appointment with neurologist. She denies any focal weakness. Patient admits to having a history of vertigo and admits that her dizziness is precipitated by head movements. Patient has been prescribed meclizine has helped, however, she is out of this medication. She also states that she has been getting off and on nausea for a few days, denies any vomiting episodes. She is on Eliquis, denies any recent falls or trauma. GENERAL: Well-appearing, well-nourished, and in no acute distress. HEAD: Normocephalic, atraumatic. CHEST: Clear to auscultation. ?No respiratory distress. HEART: Regular rate and rhythm.? NEURO: ?Alert and oriented x3. Patient screened in triage and initial orders placed.? ?Additional care and disposition to be based upon?diagnostic testing and treatment. <Mihaela Carrion MD - Last Filed: 02/05/24 23:20> Related Data Home medications: Home Medications Medication Instructions Recorded Confirmed apixaban 5 mg tablet (Eliquis) 5 mg PO BID 08/06/19 11/30/23 diltiazem HCl 120 mg capsule,24 120 mg PO DAILY 08/06/19 11/30/23 hr,extended release pantoprazole 40 mg tablet,delayed 40 mg PO QAM PRN Acid Reflux 08/06/19 11/30/23 release sotalol 80 mg tablet 80 mg PO BID 08/06/19 11/30/23 rosuvastatin 5 mg tablet 5 mg PO .qod 11/23/21 11/30/23 ezetimibe 10 mg tablet 10 mg PO DAILY 07/04/22 11/30/23 losartan 100 mg tablet 100 mg PO DAILY 10/04/22 11/30/23 <Eli Herring, OLEOMARGARINE MAKER - Last Filed: 02/05/24 17:18> Allergies/adverse reactions: Allergies Allergy/AdvReac Type Severity Reaction Status Date / Time Sulfa (Sulfonamide Allergy Mild Hives Verified 02/05/24 18:52 Antibiotics) <Eli Herring, OLEOMARGARINE MAKER - Last Filed: 02/05/24 17:18> Review of Systems Review of Systems: All systems are reviewed and are negative unless stated otherwise in the HPI. <Mihaela Carrion MD - Last Filed: 02/04
--- NOTE | 2024-02-05 17:12 | ECG_ITS ---
SEE SCANNED COPY FOR CONFIRMED REPORT MTDD
[2024-02-05 17:30] LABS: Basophils Percent Auto 0.4 % (0.2-1.2); Eosinophils Absolute Auto 0.1 K/mm3 (0-0.3); Eosinophils Percent Auto 0.4 % (0-4.4); Hematocrit 42.3 % (37.0-47.0); Hemoglobin 14.5 g/dL (12.0-15.0); Immature Granulocyte Absolute 0.05 K/mm3 (0.00-0.031); Immature Granulocyte Percent A 0.4 % (0-0.5); Lymphocytes Percent Auto 25.6 % (18.3-44.2); Mean Corpuscular HGB Conc 34.3 g/dl (32-36); Mean Corpuscular Hemoglobin 32.2 pg (26-34); Mean Corpuscular Volume 93.8 fl (80-100); Mean Platelet Volume 10.7 fl (7.4-10.4); Monocytes Absolute Auto 0.8 K/mm3 (0.1-0.6); Monocytes Percent Auto 6.7 % (2.6-8.5); Neutrophils Absolute Auto 7.6 K/mm3 (1.3-6.7); Neutrophils Percent Auto 66.5 % (45.5-73.1); Platelet Count Result 232 k/mm3 (150-375); Red Blood Count 4.51 M/mm3 (4.2-5.4); Red Cell Distribution Width 15.5 % (11.5-14.5); White Blood Count 11.4 K/mm3 (4.5-10.0)
[2024-02-05 17:39] LABS: Alanine Aminotransferase 16 U/L (6-35); Albumin Level 4.3 g/dL (3.5-5.1); Alkaline Phosphatase 74 U/L (38-126); Anion Gap 5 mmol/L (4-12); Aspartate Amino Transferase 28 U/L (14-36); Bilirubin,Total 0.8 mg/dL (0.2-1.3); Blood Urea Nitrogen 22 mg/dL (7-17); Calcium 9.5 mg/dL (8.4-10.2); Carbon Dioxide 25 mmol/L (22-30); Chloride 105 mmol/L (98-107); Estimated Glomerular Filt Rate > 60; Glucose 116 mg/dL (65-110); Magnesium 1.9 mg/dL (1.6-2.3); Sodium 135 mmol/L (137-145)
[2024-02-05 17:50] LABS: NT Pro B Type Natriuretic Pept 309 pg/mL (19.9-100); Troponin I < 0.012 ng/mL (0.000-0.034)
[2024-02-05 18:44] VITALS: BP 196/55; PULSE 61; RESP 15; TEMP 36.4; O2SAT 98
[2024-02-05 18:48] VITALS: O2SAT 98
[2024-02-05 18:50] VITALS: BP 196/55; PULSE 62; RESP 13; O2SAT 100
[2024-02-05 18:51] VITALS: PULSE 61
[2024-02-05 19:50] LABS: Influenza A QL RT-PCR Negative (Negative); Influenza B QL RT-PCR Negative (Negative); RSV RNA, RT-PCR Negative (Negative); SARS-CoV-2 RNA PCR Negative (Negative)
[2024-02-05 20:35] VITALS: PULSE 57; RESP 16; O2SAT 98
[2024-02-05 20:43] LABS: Appearance Urine Cloudy (Clear); Bacteria Urine 4+ /hpf; Bilirubin Urine Negative (Negative); Blood Urine Negative (Negative); Color Urine Yellow (Yellow); Glucose Urine UA Negative (Negative); Ketones Urine Negative (Negative); Leukocyte Esterase Ur 2+ LEU/UL (Negative); Nitrate Urine Negative (Negative); Protein Urine Negative (Negative); Squamous Epithelial Cell Urine Occasional /hpf (Few); Urobilinogen Urine 0.2 mg/dL (<2.0)
[2024-02-05 20:50] LABS: Add Urine Microscopic? YES
== END 2024-02-05 21:12 | disposition home or self-care (01) ==
PROVIDERS: Nurse Practitioner Family; Emergency Provider Emergency Medicine; PCP Family Medicine
DX: N39.0 Urinary tract infection, site not specified (principal); M48.061 Spinal stenosis, lumbar region without neurogenic claudication; R53.1 Weakness; R06.02 Shortness of breath; Z20.822 Contact with and (suspected) exposure to COVID-19; I48.91 Unspecified atrial fibrillation; I10 Essential (primary) hypertension; E78.5 Hyperlipidemia, unspecified; K21.9 Gastro-esophageal reflux disease without esophagitis; Z90.710 Acquired absence of both cervix and uterus; Z79.01 Long term (current) use of anticoagulants; Z77.22 Contact with and (suspected) exposure to environmental tobacco smoke (acute) (chronic); R94.31 Abnormal electrocardiogram [ECG] [EKG]
CPT/HCPCS: 36415; 71046; 80053; 81001; 83735; 83880; 84484; 85025; 87086; 87637; 93005; 99284

== ENCOUNTER 2024-02-07 13:36 | Outpatient (RCR) | payer MEDICARE, OTHER, SELFPAY ==
--- NOTE | 2024-02-06 08:18 | PCPTNOTE ---
This treatment is being continued from visit number [id number]. Please see documentation on both accounts to view progress. Completed interventions, outcomes, and problems have been marked as Inactive to facilitate the copying of the Care plan routine for recurring accounts.
--- NOTE | 2024-02-07 14:20 | PTOPDC ---
Assessment and note entered by Angelika Grande, PT Evaluation Information Assessment Status Discharge Diagnosis lumbar spondylosis, lumbar radicular pain Onset 2017 Subjective Information in the past week, have had more weakness in legs and problems walking; went to ER 2 days ago-- tests were done and said weakness is coming from the back; have referral to neurologist and spinal dr--not yet made appointments; in house, use the walking stick and when go out, use the wheeled walker; am doing the exercises; her daughter has an above ground pool that she can do the water exercises, but will only go in the water with her family there; agrees to stop therapy and see what the new drs have to say. Reported Pain Level Pain Score Self Report Pain Score Self Report Additional Pain Score Comments both sides of low back, into R LE at worst to ankle; R calf aching most of the time; into L LE intermittent to calf; legs weak; sleeping has been OK; pain range in the past week: 2-8/10 increase pain: walking decrease pain: lie down in bed, and do few stretches; Additional Pain Score Comments pain range in the past week 0-8/10; radicular R LE to lateral ankle and L LE to mid lateral calf increase pain: standing up straight decrease pain: rest, tylenol, heat over R leg sleeping is OK Assessment PT Clinical Summary Delisa has received 16 PT sessions. She did not show for 1 appointment. Compared to the last reassessment: pain rating from 0-8/10 to 2-8/10; radicular pain is same into R and L LE;self assessment with the Oswestry back rating is worse, from 40 to 44% limitation in activity level; 5 reps sit/stand time worse, from 23 to 40 seconds to perform; 2 minute walking test distance, using the rollator walkier, is 10' less, from 320' to 310' with increase pain into back and legs; static standing time without UE support is less, from 38 to 32 seconds; static sitting at edge of mat improved from 18 to 40 seconds with upright trunk; education completed for HEP and safety with mobility. The goals were partially met. She continues to have radicular pain and more leg weakness. Discharge PT services,
== END 2024-04-23 15:01 | disposition home or self-care (01) ==
LOC: ANHPT 13:36
PROVIDERS: PCP Family Medicine; Referring Provider Physical Medicine & Rehabilitation; Visit Provider Family Medicine
DX: R42 Dizziness and giddiness (principal); M47.26 Other spondylosis with radiculopathy, lumbar region
CPT/HCPCS: 97110; 97530

== ENCOUNTER 2024-04-11 13:15 | Outpatient (CLI) | payer MEDICARE, OTHER, SELFPAY ==
--- NOTE | ~2024-04-11 | US_ITS ---
EXAMINATION: US renal BI DATE: 04/11/2024 13:35 INDICATION: N28.1 - Cyst of kidney, acquired TECHNIQUE: Multiple grayscale and Doppler ultrasound images of the kidneys were obtained. COMPARISON: 02/07/2019. FINDINGS: The right kidney measures 8.9 x 3.9 x 4.5 cm. The left kidney measures 9.6 x 5.0 x 5.4 cm. The kidney s demonstrate normal parenchymal echogenicity. Simple bilateral renal cysts, measuring up to 4.9 cm o n the left. There is no hydronephrosis. The bladder is normal. IMPRESSION: Unremarkable renal sonogram findings. Reviewed, dictated and finalized at location K.
== END 2024-04-11 13:16 ==
LOC: MICIMG 13:16
PROVIDERS: PCP Family Medicine; Visit Provider Family Medicine
DX: N28.1 Cyst of kidney, acquired (principal)
CPT/HCPCS: 76775

== ENCOUNTER 2024-05-16 13:30 | Outpatient (CLI) | payer MEDICARE, OTHER, SELFPAY ==
--- NOTE | ~2024-05-16 | XR_ITS ---
EXAMINATION: XR pelvis min 3V DATE: 05/16/2024 14:03 INDICATION: Sacroiliitis. TECHNIQUE: An anteroposterior view of the pelvis was obtained. COMPARISON: Lumbar spine MRI 02/03/2024 FINDINGS: There is lumbar dextrocurvature and severe spondylosis. No fracture. There is mild osteoart hritis of the sacroiliac joints. There is moderate osteoarthritis of the hips. IMPRESSION: 1. Mild osteoarthritis of the sacroiliac joints. No evidence of inflammatory arthropathy. Reviewed, dictated and finalized at location A. IMPRESSION: 1. Mild osteoarthritis of the sacroiliac joints. No evidence of inflammatory ar thropathy.
== END 2024-05-16 13:31 ==
PROVIDERS: PCP Family Medicine; Visit Provider Physical Medicine & Rehabilitation Pain Medicine
DX: M46.1 Sacroiliitis, not elsewhere classified (principal); M47.818 Spondylosis without myelopathy or radiculopathy, sacral and sacrococcygeal region
CPT/HCPCS: 72190

== ENCOUNTER 2024-06-07 15:19 | Outpatient (CLI) | payer MEDICARE, OTHER, SELFPAY ==
--- NOTE | ~2024-06-07 | XR_ITS ---
XR lumbar spine min 4V DATE: 06/07/2024 15:55 INDICATION: Spinal stenosis TECHNIQUE: Standing AP, lateral, coned lateral lumbosacral views. Standing flexion and extension late ral views. COMPARISON: None FINDINGS: There is osteopenia. There is prominent degenerative disc disease at T11-12 and T12-L1. L1-2 interspace is well preserved. Moderate loss of interspace height at L2-3. There is moderately severe degenerative disc disease at L3-4, L4-5 and L5-S1. There is associated 1.7 mm retrolisthesis at L2-3 in neutral and extension, reduced in flexion. There is prominent degenerative change of the apophyseal joints particularly at the mid and lower lum bar and lumbosacral area, with associated: 1 mm grade 1 anterolisthesis at L3-4 in neutral, 2.1 mm in flexion, 1.2 mm in extension. 6.2 mm grade 1 anterolisthesis at L4-5 in neutral, 7.3 mm in flexion, 6.2 mm in extension. The included lower thoracic and lumbar pedicles are intact. No fracture or bone destruction of the amber mbar spine. The sacroiliac joints are intact. IMPRESSION: Moderately severe lumbar spondylosis; no fracture or bone destruction Reviewed, dictated and finalized at location A. IMPRESSION: Moderately severe lumbar spondylosis; no fracture or bone destructi on
== END 2024-06-07 15:20 | disposition home or self-care (01) ==
LOC: MICIMG 15:19
PROVIDERS: PCP Family Medicine; Visit Provider Neurological Surgery
DX: M43.16 Spondylolisthesis, lumbar region (principal); M48.062 Spinal stenosis, lumbar region with neurogenic claudication
CPT/HCPCS: 72110

== ENCOUNTER 2024-06-20 14:53 | Outpatient (CLI) | payer MEDICARE, OTHER, SELFPAY ==
--- NOTE | ~2024-06-20 | US_ITS ---
EXAMINATION: US carotid duplex BI DATE: 06/20/2024 15:49 INDICATION: Vertigo and headaches TECHNIQUE: Grayscale, color Doppler, and pulsed Doppler images of the cervical carotid arteries were obtained. The degree of vessel stenosis is placed in one of the following categories: normal, <50%, 5 0-69%, >=70% but less than near-occlusion, near-occlusion, or total occlusion. Note that percent sten osis relative to normal distal artery lumen diameter is indirectly measured from velocity measurement s as described by Antonio, et al. Radiology 2003; 229:340-346. COMPARISON: None. FINDINGS: RIGHT: The right common carotid artery (CCA) peak systolic velocity (PSV) is 64 cm/s. The right internal car otid artery (ICA) PSV is 57 cm/s. The right ICA end-diastolic velocity (EDV) is 13 cm/s. The right IC A/CCA PSV ratio is 2.0. Grayscale and color Doppler images yield an estimate of <50% diameter reducti on from plaque in the ICA. The external carotid artery (ECA) PSV is 64 cm/s. There is antegrade flow in the right vertebral artery. LEFT: The left CCA PSV is 68 cm/s. The left ICA PSV is 69 cm/s. The left ICA EDV is 13 cm/s. The left ICA/C CA PSV ratio is 1.4. Grayscale and color Doppler images yield an estimate of <50% diameter reduction from plaque in the ICA. The ECA PSV is 86 cm/s. There is antegrade flow in the left vertebral artery. IMPRESSION: 1. <50% stenosis in the right internal carotid artery. 2. <50% stenosis in the left internal carotid artery. Reviewed, dictated and finalized at location A.
== END 2024-06-20 14:54 | disposition home or self-care (01) ==
PROVIDERS: PCP Family Medicine; Visit Provider Family Medicine
DX: R09.89 Other specified symptoms and signs involving the circulatory and respiratory systems (principal); I65.23 Occlusion and stenosis of bilateral carotid arteries
CPT/HCPCS: 93880

== ENCOUNTER 2024-07-02 12:56 | Outpatient (CLI) | payer MEDICARE, OTHER, SELFPAY ==
[2024-07-02 13:58] LABS: INR 1.2; Prothrombin Time 15.2 Seconds (11.1-14.7)
[2024-07-02 13:59] LABS: Partial Thromboplastin Time 30.2 Seconds (22.3-36.8)
[2024-07-02 14:03] LABS: Add Urine Microscopic? YES; Appearance Urine Cloudy (Clear); Bacteria Urine 4+ /hpf; Bilirubin Urine Negative (Negative); Blood Urine Negative (Negative); Color Urine Yellow (Yellow); Glucose Urine UA Negative (Negative); Ketones Urine Negative (Negative); Leukocyte Esterase Ur 1+ LEU/UL (Negative); Need Manual Microscopic Reviewed; Nitrate Urine Positive (Negative); Non Pathogenic Casts 0-2; Protein Urine Negative (Negative); RBC Urine 0-2 /hpf (0-2); Specific Grav Ur 1.013 (1.001-1.035); Squamous Epithelial Cell Urine Few /hpf (Few); Urobilinogen Urine 0.2 mg/dL (<2.0); WBC Urine 0-5 /hpf (0-3)
== END 2024-07-02 12:57 | disposition home or self-care (01) ==
LOC: ANHSURGERY 13:19
PROVIDERS: PCP Family Medicine; Visit Provider Neurological Surgery
DX: M48.062 Spinal stenosis, lumbar region with neurogenic claudication (principal); Z01.818 Encounter for other preprocedural examination
CPT/HCPCS: 36415; 81001; 85610; 85730; 87077; 87086; 87186

== ENCOUNTER 2024-07-10 04:40 | Day surgery (SDC) | payer MEDICARE, OTHER, SELFPAY ==
[2024-07-02 11:06] VITALS: BMI 24.5
--- NOTE | 2024-07-02 11:40 | PC.NURSE ---
Report to the Outpatient Waiting Room, entrance under the green pavilion located off [facility], at time __6:00AM on date ___07/10/24____. Planned Procedure Time: ___7:30AM .? Time changes happen often and if your time is changed the preop area will call you the afternoon before. - You and your visitor will be asked to self-screen and do not enter if you have any COVID symptoms. Please call surgeon if you need to reschedule. - A mask is optional within the hospital at this time. Patients may have clear liquids (water, carbonated beverages, clear teas, apple juice) until 3 hours prior to surgery with a maximum of 20 ounces. - No food from midnight until time of surgery and no smoking. Take only the following medications with a SIP of water on the morning of surgery: ____SOTOLOL DO NOT STOP ANY OF YOUR OTHER PRESCRIPTION MEDICATIONS PRIOR TO SURGERY EXCEPT THE FOLLOWING Medications to discontinue per physician ____HOLD ELIQUIS 72 HOURS PRE-OP PER FERRY PILOT/CLEARANCE Date to take last dose 07/06/24 Please no make-up, nail irish, hairspray, perfume, deodorant, or body powder the day of surgery.? No jewelry (including any body piercings) or valuables the day of surgery, leave them at home.? Please take a shower or bath the night before, or the morning of, surgery with an antibacterial soap.? Wear comfortable, loose fitting clothing.? - Jewelry must be removed prior to entering the operating room.? Rings and piercings that are not removed may be cut off. - The hospital will not accept responsibility for valuables.? - Please leave all valuables, including medications, at home the day of surgery. If you are going home after surgery, a licensed carrier driver must drive you home.? - NO public transportation without another adult if you receive anesthesia. - We recommend that an adult stay with you for 24 hours following discharge. - We also recommend that you do not drive, make important decision, drink alcoholic beverages, or take any drugs that were not prescribed by your health care provider for at least 24 hours after your discharge time. Follow any additional instructions given to you from your surgeon. Telephone instructions given to ____PATIENT and asked if any additional questions and then verbalized understanding. Patient advised to call surgeon office or pre surgery nurse liaison [phone] if any additional questions.
--- NOTE | 2024-07-09 14:15 | P.PNAN_ITS ---
Anes - Initial Pre Proc Eval Procedure: Operation Date: 07/10/24 07:30 Proposed Procedures p L4-L5, Laminectomy - Katya Acevedo MD Date/Time: 07/09/24 14:15 Surgeon: Katya Acevedo MD Pre Op Diagnosis: lumbar stenosis with neurogenic claudication Patient Data Age: 83 Gender: F Height: 1.52 m Weight: 57 kg Allergies Allergy/AdvReac Type Severity Reaction Status Date / Time Sulfa (Sulfonamide Allergy Intermediate Hives, RASH Verified 07/10/24 07:19 Antibiotics) Home Medications Medication Instructions Recorded Confirmed Type apixaban 5 mg tablet (Eliquis) 5 mg PO BID 08/06/19 07/02/24 History diltiazem HCl 120 mg capsule,24 120 mg PO HS 08/06/19 07/02/24 History hr,extended release pantoprazole 40 mg tablet,delayed 40 mg PO DAILY 08/06/19 07/02/24 History release sotalol 80 mg tablet 80 mg PO BID 08/06/19 07/02/24 History rosuvastatin 5 mg tablet 5 mg PO DAILY 11/23/21 07/02/24 History losartan 100 mg tablet 100 mg PO HS 10/04/22 07/02/24 History wheeled walker with seat #1 ea 04/12/23 06/18/24 Rx meclizine 25 mg tablet 25 mg PO BID PRN dizziness #60 tabs 09/25/23 07/02/24 Rx ipratropium bromide 42 mcg (0.06 2 spray intranasal TID PRN 07/02/24 07/02/24 History %) nasal spray Congestion cephalexin 500 mg capsule 500 mg PO Q8H 7 days #21 caps 07/04/24 Rx Patient hx anesthesia problems: none Family hx anesthesia problems: none Results Review: All pre-operative results and documents have been reviewed as part of the pre- operative evaluation. [facility] Past Medical History Medical History Abdominal aortic pulsation Abdominal weakness Atrial fibrillation Cervical spondylosis Epigastric pain GERD (gastroesophageal reflux disease) Hyperlipidemia Hypertension Lumbar spinal stenosis Thyroid nodule Surgical History Surgical History History of hysterectomy Family History Family History Mother Hypertension Sibling Acute myocardial infarction Father Family history of lung cancer Social History Social History Smoking packs per day: 1 Smoking cigarettes per day: 20.0 Years smoked: 5 Smoking pack-years: 5.00 Smoking status: Former smoker Tobacco type: cigarettes Second hand tobacco smoke exposure: Yes (father smoked) Smoking end date: 03/18/70 Alcohol intake: current Alcohol use details: Rarely. Substance use: never Substance use type: does not use Lack of Transportation: No Lack of Food: Never True Current Housing: I Have Housing Concerned About Future Housing: No Difficulty Paying Gas/Electric Bills: No Difficulty Paying for Meds: No Currently Unemployed: No Education: High School Diploma/GED Difficulty w/ Childcare or Family Care: No Living arrangements: with family Additional living arrangements comments: [employer] Occupation/Education: retired Gender identity (if verbalized by the patient): Female Sexual Orientation (if Verbalized by the Patient): Straight or Heterosexual Spiritual care concerns: No Agree to blood products: Yes Anes - Eval Final PreProcedure Day of Procedure 07/09/24 14:15 Patient weight: normal Heart: irregular rhythm Lungs: clear to auscultation Neurological: alert and oriented Last oral intake: >/= 8 hours ASA classification: III Emergent: no Anesthetic plan: proceed Anesthesia type and monitoring: general ETT and standard monitoring Results Review: All pre-operative results and documents have been reviewed as part of the pre- operative evaluation. Informed Consent: The patient's anesthetic plan and its attendant risks and benefits were discussed with the patient/family/POA. Questions were solicited and answers provided to the satisfaction of the patient/family/POA.
[2024-07-10] VITALS (13 sets, daily range): BP systolic 123–175; BP diastolic 44–72; PULSE 56–81; RESP 9–16; TEMP 35.7–36.8; O2SAT 95–100; BMI 24.7
--- NOTE | ~2024-07-10 | XR_ITS ---
EXAMINATION: XR fluoroscopy no charge DATE: 07/10/2024 09:25 INDICATION: Lumbar stenosis with neurogenic claudication. TECHNIQUE: A single intraoperative fluoroscopic view of the lumbar spine was obtained. I was not pres ent. Fluoroscopy exposure time was 4 seconds. COMPARISON: Lumbar spine radiographs 06/07/24 FINDINGS: There is mild anterolisthesis of L4 on L5. There is moderate lumbar spondylosis. There are instruments overlying the posterior elements at L4-L5. IMPRESSION: 1. Moderate lumbar spondylosis. Reviewed, dictated and finalized at location A.
[2024-07-10] MEDS: LACTATED RINGERS 1,000 ML 30 ML IV CONT ×2 (06:25→09:25)
[2024-07-10 07:01] LABS: INR 0.9; Prothrombin Time 12.9 Seconds (11.1-14.7)
--- NOTE | 2024-07-10 07:02 | WPDHPUPDATE1 ---
History and Physical Update Update Date/Time: 07/10/24 07:02 History and Physical has been reviewed, including an updated exam of the patient. There are NO changes in the patient's condition. Risks, benefits, and alternatives have been discussed and questions answered. Patient agrees to proceed with procedure.
[2024-07-10] MEDS: ceFAZolin 2 GM/D5W 50 ML 2 GM/50 ML BAG IVPB (07:32)
[2024-07-10] MEDS: BUPIVACAINE/EPINEPHRINE 0.5% 50 ML VIAL 10 ML INFILTRATE (08:06)
--- NOTE | 2024-07-10 09:12 | PM.OP ---
Procedure Note - Brief Procedure Note - Brief Date of procedure: 07/10/24 lumbar stenosis with neurogenic claudication Post-op diagnosis: Same Procedure performed: L4-5 laminectomy Surgeon: Katya Acevedo MD Anesthesia: GETA Findings: Successful laminectomy without complication Estimated blood loss (mL): 10 Drains: No Packing: No Pathology: None sent Complications: None Condition: Stable Disposition: PACU
--- NOTE | 2024-07-10 09:24 | P.OP_ITS ---
Procedure Note - Detailed Date of Procedure 07/10/24 Pre-op Diagnosis lumbar stenosis with neurogenic claudication Post-op Diagnosis Same Procedure Performed L4-5 laminectomy Use of microscope for microsurgical dissection Use of C-arm for fluoroscopy Surgeon Katya Acevedo MD Liquid Sugar Melter Carlos Eduardo Anesthesia General Indications Ms. Connolly is an 83-year-old female with history of AFib and hypertension on Eliquis who presents with at least 6 years buttock and bilateral leg pain, worse on the right side, following what sounds like an L5 dermatome. She is unable to stand up straight due to her pain and is needing a walker to ambulate. She had physical therapy and is receiving epidural steroid injections as frequently as she is allowed. On physical exam, she does have decreased sensation to light touch in the right lateral leg. She ambulates stooped over with a cane. MRI lumbar spine shows most notably a grade 1 spondylolisthesis at L4-5 with severe central and lateral recess stenosis from ligamentum flavum hypertrophy. she returns today with lumbar x-rays that do not show obvious dynamic instability at L4-5. We discussed 2 options for surgery, the 1st of which would be an L4-5 laminectomy only, and the 2nd of which would be an L4-5 decompression and fusion. Ultimately, because of her age and because of the lack of dynamic instability on her x-rays, I do not feel strongly that instrumentation is necessary for stabilization. She is very much in favor of proceeding with a decompression only procedure. I have therefore offered her surgery in the form of L4-5 laminectomy. We discussed surgery in detail including risks, expected recovery, and restrictions after surgery. The patient provided written informed consent to proceed. Risks including bleeding, infection, nerve damage, CSF leak, weakness, meningitis, damage to surrounding structures, and failure to alleviate symptoms were discussed. Description of Procedure The patient was brought to the operating room, and general anesthesia was induced. The patient was placed prone on the Toni frame, and all pressure points were padded. Compression devices were placed on the patient's calves. The C-arm was brought onto the field to localize the appropriate disc space and assist with incisional planning. The area was prepped and draped in usual sterile fashion. A time out was conducted, and pre-operative antibiotics were administered. Local anesthesia was injected into the planned incision. A midline skin incision was made with a 10-blade scalpel, and dissection was carried down with the monopolar cautery to open the fascia. Once the spinous processes were located, a subperiosteal dissection was performed to expose the laminae bilaterally. A self-retaining retractor was placed. The C-arm was brought in to confirm the correct level. The spinous process was removed with a Leksell. The microscope was draped and brought into the field. The high-speed drill was used to thin the lamina bilaterally to the ligamentum flavum. An upgoing currette was used to separate the bone from the ligament. The Kerrison was used to remove remaining laminae. The currette was used to separate the ligament from the dura, and the ligament was removed with the kerrison as well. A Woodsen was used to verify adequate decompression at the cranial and caudal aspects of the decompression. Hemostasis was ensured with Surgiflo and the bipolar, and the area was copiously irrigated. No evidence of CSF leak was noted. The muscle was loosely approximated with 0-Vicryl. The fascia was closed with 0-Vicryl in an interrupted fashion. The soft tissue was again copiously irrigated. The dermis was closed with 2-0 and 3-0 interrupted Vicryl. The skin was closed with 4-0 subcuticular monocryl. Sterile dressings were applied. The patient was returned supine on the stretcher, extubated, and transferred to PACU without incident. CPT 85674, 83999 Implants None Estimated Blood Loss 10 Drains No Pathology None sent Complications None Condition Stable Disposition PACU [facility] Billing Surgery - Charge Forward: Surgery Billing
[2024-07-10] MEDS: fentaNYL CITRATE INJ (*CRX) 100 MCG/2 ML VIAL 25 MCG IV PUSH (09:44)
[2024-07-10] MEDS: ONDANSETRON INJ 4 MG/2 ML VIAL IV PUSH (09:50)
[2024-07-10] MEDS: PROPARACAINE HCL 0.5% 15 ML OPHTH SOLN 1 DROP EACH EYE (10:36)
[2024-07-10] MEDS: DICLOFENAC SODIUM 0.1% OPHTH SOLN 2.5 ML BOTTLE 1 DROP EACH EYE (10:36)
[2024-07-10] MEDS: ARTIFICIAL TEARS OPHTH SOLN 15 ML BOTTLE 1 DROP EACH EYE (10:37)
--- NOTE | 2024-07-10 11:21 | PC.NURSE ---
This patient, Delisa Connolly, was admitted to Medical Room 348-01. Patient/family oriented to hospital policies and general routines including ID bracelet, bed and alarms, visiting hours, pain management, procedures, bathroom and other care routines, personal items, smoking policy, room service/diet, and visiting hours. Information on how to activate the Rapid Response Team has been discussed. Patient/Family are encouraged to report perceived risks to care and to ask questions if they do not understand what they are told or what they should do.
[2024-07-10] MEDS: ceFAZolin 1 GM/NS 50 ML 1 GM/50 ML BAG IVPB (16:25)
[2024-07-10] MEDS: ACETAMINOPHEN 500 MG TABLET 1000 MG PO (17:55)
[2024-07-10] MEDS: LOSARTAN POTASSIUM 100 MG TABLET PO (21:11)
[2024-07-10] MEDS: SOTALOL HCL 80 MG TABLET PO (21:11)
[2024-07-10] MEDS: DOCUSATE SODIUM 100 MG CAPSULE PO (21:11)
[2024-07-10] MEDS: dilTIAZem HCL CD 120 MG CAP.24HR PO (21:11)
[2024-07-11] MEDS: ACETAMINOPHEN 500 MG TABLET 1000 MG PO ×3 (00:04→12:37)
[2024-07-11] MEDS: ceFAZolin 1 GM/NS 50 ML 1 GM/50 ML BAG IVPB ×2 (00:05→06:03)
[2024-07-11 00:20] VITALS: BP 137/47; PULSE 80; RESP 16; TEMP 36.6; O2SAT 100
[2024-07-11 05:00] VITALS: BP 155/84; PULSE 93; RESP 18; TEMP 36.7; O2SAT 98
[2024-07-11 08:20] VITALS: BP 116/70; PULSE 66; RESP 16; TEMP 36.3; O2SAT 99
[2024-07-11 09:04] VITALS: PULSE 85
[2024-07-11] MEDS: SOTALOL HCL 80 MG TABLET PO (09:04)
[2024-07-11] MEDS: ROSUVASTATIN 5 MG TABLET PO (09:04)
[2024-07-11] MEDS: DOCUSATE SODIUM 100 MG CAPSULE PO (09:05)
[2024-07-11] MEDS: PANTOPRAZOLE 40 MG TABLET PO (09:05)
--- NOTE | 2024-07-11 09:20 | WPDANESPN ---
Anes - Prog Note Post-Op Date/Time: 07/11/24 09:20 Cardiovascular status: normal Respiratory status: normal Airway patency: baseline Mental status: baseline Post-Op hydration status: normal Vital Signs: Last Vital Signs Temp 36.3 C L 07/11/24 08:20 Pulse 85 07/11/24 09:04 Resp 16 07/11/24 08:20 BP 116/70 07/11/24 08:20 Pulse Ox 99 07/11/24 08:20 O2 Del Method Room Air 07/10/24 21:00 O2 Flow Rate 8 07/10/24 09:55 Pain Score (VAS): 1 I/O: Intake & Output 07/10/24 07/11/24 07/11/24 23:59 07:59 15:59 Intake Total 770 300 Balance 770 300 Post-procedural complaints: none Patient Feedback: Patient satisfied with anesthetic care.
--- NOTE | 2024-07-11 13:00 | WPDNEUROSGPN ---
Progress Note: A&P Assessment and Plan (1) Status post lumbar laminectomy: Code(s): Z98.890 - Other specified postprocedural states Status: Acute Plan -Discharge home today -Wound care and activity precautions reviewed at bedside -Follow up with me in 2 weeks as scheduled Subjective Date/time seen: 07/11/24 13:00 Interval history: Doing well today with adequate pain control of her back. She notices slight pain in the right lower lateral leg which just started recently. She was able to ambulate with therapy and go up and down steps. She is tolerating PO and voiding independently. She feels ready to discharge home. Review of Systems Review of Systems: All systems reviewed & are unremarkable except as noted in HPI and below Exam Narrative: Incision c/d/i Full strength in lower extremities Sensation intact to light touch AOx4 Objective Data Vital Signs Vital Signs: Vital Signs - 24 hr 07/10/24 14:17 07/10/24 15:00 07/10/24 19:59 Temperature 97.7 F Pulse Rate 81 Respiratory Rate 16 Blood Pressure 158/57 H Pulse Oximetry 96 Oxygen Delivery Room Air Room Air 07/10/24 21:11 07/10/24 21:00 07/11/24 00:20 Temperature 97.9 F Pulse Rate 81 80 Respiratory Rate 16 Blood Pressure 137/47 L Pulse Oximetry 100 Oxygen Delivery Room Air 07/11/24 05:00 07/11/24 08:20 07/11/24 09:04 Temperature 98.1 F 97.3 F L Pulse Rate 93 66 85 Respiratory Rate 18 16 Blood Pressure 155/84 H 116/70 Pulse Oximetry 98 99 Oxygen Delivery 07/11/24 09:05 Temperature Pulse Rate Respiratory Rate Blood Pressure Pulse Oximetry Oxygen Delivery Room Air Intake/Output Intake/Output: Intake & Output 07/08/24 07/09/24 07/10/24 07/11/24 23:59 23:59 23:59 23:59 Intake Total 1120 540 Balance 1120 540 Meds/Results Medications: Active Medications Generic Name Dose Route Start Last Admin Trade Name Freq PRN Reason Stop Dose Admin Acetaminophen 1,000 mg 07/10/24 12:00 07/11/24 12:37 Acetaminophen 500 Mg Tablet PO 1,000 mg Q6HR KAYLAH Administration Al Hydrox/Mg Hydrox/Simethicone 20 ml 07/10/24 09:20 Mag Hydrox/Al Hydrox/Simeth 30 Ml Udc PO Q4H PRN Indigestion/Heartburn Artificial Tears 1 drop 07/10/24 10:21 07/10/24 10:37 Artificial Tears Ophth Soln 15 Ml Bottle EACH EYE 1 drop Q2H PRN Administration Dry Eye(s) Bisacodyl 10 mg 07/10/24 09:20 Bisacodyl 10 Mg Suppository RECTAL DAILY PRN Constipation Cyclobenzaprine HCl 10 mg 07/10/24 09:21 Cyclobenzaprine Hcl 10 Mg Tablet PO TID PRN Muscle Spasms Diltiazem HCl 120 mg 07/10/24 21:00 07/10/24 21:11 Diltiazem Hcl Cd 120 Mg Cap.24hr PO 120 mg HS KAYLAH Administration Docusate Sodium 100 mg 07/10/24 21:00 07/11/24 09:05 Docusate Sodium 100 Mg Capsule PO 100 mg Q12HR KAYLAH Administration Cefazolin Sodium 1 gm in 50 mls @ 100 mls/hr 07/10/24 15:00 07/11/24 06:33 Ancef 1 Gm/Ns 50 Ml IVPB 07/11/24 14:59 Infused Q8H KAYLAH Infusion Ipratropium [place] 2 spray 07/10/24 09:22 Ipratropium Nasal [place] 0.06% 15 Ml Bottle NASAL TID PRN Congestion Losartan Potassium 100 mg 07/10/24 21:00 07/10/24 21:11 Losartan Potassium 100 Mg Tablet PO 100 mg HS KAYLAH Administration Meclizine HCl 25 mg 07/10/24 09:22 Meclizine Hcl 25 Mg Tablet PO BID PRN dizziness Ondansetron HCl 4 mg 07/10/24 09:20 Ondansetron Inj 4 Mg/2 Ml Vial IV PUSH Q8H PRN Nausea And Vomiting Oxycodone HCl 10 mg 07/10/24 09:21 Oxycodone Hcl (*Crx) 5 Mg Tab Ir PO Q4H PRN Pain Rated 7-10 Oxycodone HCl 5 mg 07/10/24 09:21 Oxycodone Hcl (*Crx) 5 Mg Tab Ir PO Q4H PRN Pain Rated 4-6 Pantoprazole Sodium 40 mg 07/11/24 09:00 07/11/24 09:05 Pantoprazole 40 Mg Tablet PO 40 mg DAILY KAYLAH Administration Rosuvastatin Calcium 5 mg 07/11/24 09:00 07/11/24 09:04 Rosuvastatin 5 Mg Tablet PO 5 mg DAILY KAYLAH Administration Senna/Docusate Sodium 1 tab 07/10/24 09:20 Senna/Docusate Sodium Tablet PO HS PRN Constipation Sotalol HCl 80 mg 07/10/24 21:00 07/11/24 09:04 Sotalol Hcl 80 Mg Tablet PO 80 mg Q12HR KAYLAH Administration Radiology Results: ITS Impressions Fluoroscopy 07/10/24 09:48 IMPRESSION: 1. Moderate lumbar spondylosis.
== END 2024-07-11 15:07 | disposition home or self-care (01) ==
LOC: ANHSURGERY 05:48 → ANH3MED 07-11 10:41
PROVIDERS: PCP Family Medicine; Visit Provider Neurological Surgery
PROC: (CPT 63005; principal; 2024-07-10 07:30)
DX: M48.062 Spinal stenosis, lumbar region with neurogenic claudication (principal); I10 Essential (primary) hypertension; I48.91 Unspecified atrial fibrillation; E78.5 Hyperlipidemia, unspecified; K21.9 Gastro-esophageal reflux disease without esophagitis; Z79.01 Long term (current) use of anticoagulants; Z87.891 Personal history of nicotine dependence
CPT/HCPCS: 63047; 36415; 85610; 97116; 97161; 97165; 97530; 97535; 99199; A9270; J0690; J1100; J2003; J2405; J2704; J3010; J7120

== ENCOUNTER 2024-10-23 12:30 | Outpatient (RCR) | payer MEDICARE, OTHER, SELFPAY ==
--- NOTE | 2024-07-30 11:43 | OPREHPOC ---
Outpatient Therapy Plan of Care This is a Multidisciplinary Plan of Care that may contain components documented by all disciplines (PT, OT, and ST.) PT Problem 1 PT Problem #1 Knowledge Deficit PT Goal 1 Goal / Goal Update *indep with HEP Target Visit 10 PT Problem 2 PT Problem #2 Pain PT Goal 1 Goal / Goal Update 1* decrease pain to 5/10 at worst 2* self assessment Oswestry rating of 28% limitation in activity level 3* pt report standing/walking tolerance of 20 minutes Target Visit 10 PT Problem 3 PT Problem #3 Impaired Strength PT Goal 1 Goal / Goal Update increase trunk and hip strength, for improved gait and mobility skills: 1* sit/stand without use of UE's from 18 seat x 5 reps 2* static stand without UE support x 80 seconds Target Visit 10 PT Problem 4 PT Problem #4 Impaired Functional Mobility PT Goal 1 Goal / Goal Update 1* 5 reps sit/stand time of 24 seconds 2* 2 minute walking test distance, with cane, 300' Target Visit 10
--- NOTE | 2024-07-30 11:44 | PTOPEVAL1 ---
Assessment and note entered by Angelika Grande, PT Evaluation Information Assessment Status Evaluation ICD-10 Condition Codes (PT) Pain in low back M54.50,Difficulty Walking R26.2, R26.9,Weakness R53.1 Other ICD-10 Condition Codes ( Z98.890: postprocedural PT) Onset 07-10-24 Subjective Information on 07-10-24 had L 4-5 laminectomy; using wheeled walker or cane for walking; since surgery, much less pain in legs- occasional into feet. have 10# lifting restriction; have weakness in trunk and hips- have to hold onto something all the time when standing; trunk collapses; activity: home with , who is disabled and does not assist with home tasks; grand son assists PRN; have basement with chair lift, but she can go up/down with the railing; GOAL: walk like a normal person; Reported Pain Level Pain Score Self Report Additional Pain Score Comments pain range in the past week 0-7/10; occasional shoots into both legs to feet; R > L pain in LE; increase pain: too much activity; stand/walk tolerance of 10-15 minutes; decrease pain: sit, rest sleeping is good/no issues Assessment PT Clinical Summary Delisa is 3 weeks s/p lumbar 4-5 laminectomy. She is increasing her activity level and mobility in her home, but is not doing any exercises. Walking and standing is limited due to back pain ~ 10-15 minutes reported. Self assessment with Oswestry rating of 38% limitation in activity level. She is using a wheeled walker or cane for mobility. With the evaluation: decreased trunk and hip strength; 5 reps sit/stand time of 34 seconds with use of 1 UE; 2 minute walking test distance of 160' with cane and pain increase to 3/10; static standing without UE support time of 25 seconds. Skilled PT services are indicated for modalities PRN for pain in back; therapeutic exercises and activity to increase LE strength, gait and balance skills, to improve posture of trunk and education for HEP, gait training and pain management. Plan of Care Interventions Electrical Stimulation,Hot Pack/Cold Pack,Manual Therapy,Neuro Re-education,Patient/Caregiver Education,Therapeutic Activities,Therapeutic Exercise,Other Other Interventions taping PT Services Indicated Yes Treatment Frequency and 2x/wk for 10 visits Duration These treatments will address the objective and functional deficits as defined above. The patient will be advanced safely and appropriately in order for the patient to progress towards his/her prior level of function. Additional exercises will be introduced and as well as a comprehensive home exercise program upon discharge, if needed, ?to ensure carryover of functional gains achieved in the clinic. This treatment plan has been reviewed and agreement upon by the patient.
--- NOTE | 2024-08-30 14:21 | OPREHPOC ---
Outpatient Therapy Plan of Care This is a Multidisciplinary Plan of Care that may contain components documented by all disciplines (PT, OT, and ST.) PT Problem 1 PT Problem #1 Knowledge Deficit PT Goal 1 Goal / Goal Update *indep with HEP 08-30-24 progress goal met; continue towards goal to progress education Target Visit 18 PT Problem 2 PT Problem #2 Pain PT Goal 1 Goal / Goal Update 1* decrease pain to 5/10 at worst 2* self assessment Oswestry rating of 28% limitation in activity level 3* pt report standing/walking tolerance of 20 minutes 08-30-24 progress goals 1,3 met; NEW GOALS: 1* pain rating at worst 3/10 2* radicular pain into R LE to knee at worst 3* Oswestry rating of 30% limitation in activity level Target Visit 18 PT Problem 3 PT Problem #3 Impaired Strength PT Goal 1 Goal / Goal Update increase trunk and hip strength, for improved gait and mobility skills: 1* sit/stand without use of UE's from 18 seat x 5 reps 2* static stand without UE support x 80 seconds 08-30-24 progress met goal1, #2 improved to 70 seconds NEW GOALS: 1* static stand without use of UE and trunk & hips upright x 1 min & 40 seconds 2* up/down 12 steps with one hand railing and single step pattern, without laboring Target Visit 18 PT Problem 4 PT Problem #4 Impaired Functional Mobility PT Goal 1 Goal / Goal Update 1* 5 reps sit/stand time of 24 seconds 2* 2 minute walking test distance, with cane, 300' 08-30-24 progress goal 1 met NEW GOALS 1* 5 reps sit/stand time of 18 seconds 2* 2 minute walking test distance of 200' with cane Target Visit 18
--- NOTE | 2024-08-30 14:22 | PTOPPROG ---
Assessment and note entered by Angelika Grande, PT Progress Report Assessment Status Progress ICD-10 Condition Codes (PT) Pain in low back M54.50,Difficulty Walking R26.2, Abnormalities of gait and mobility R26.9,Weakness R53.1 Other ICD-10 Condition Codes ( Z98.890: postprocedural PT) Onset 07-10-24 Subjective Information doing better and am stronger; use the cane or nothing for walking; legs and stomach are still weak; able to do stairs, have a chair lift at home to basement due to steep stairs, but can go upstairs to bed room but hard to do; problems reaching into kitchen cabinets; have been doing the exercises and working hard as I can to get better. want to continue with therapy to get stronger. PAIN: range in the past week 0-5/10; intermittent radicular pain 2x/wk into R LE to mid calf increase pain: more activity; with home standing /walking- activity tolerance 15-20 min; decrease pain: sit/rest, heat, tylenol sleeping OK Assessment PT Clinical Summary Delisa has received 10 PT sessions. Compared to the initial eval: pain from 0-7/10 with radicular pain into R and L LE to 0-5/10, radicular pain to R to mid calf at worst and NO L LE pain; self assessment Oswestry rating from 38% to 36% limitation in activity level; reported standing/walking activity tolerance from 10-15 to 15-20 minutes; 5 reps sit to stand time with 1 UE use 25 seconds, to 22 seconds without UE use; static standing without UE support 25 seconds to 70 seconds; standing with UE reaching overhead, unsteady with loss of balance; education for gait, balance and HEP. The goals were partially met. Continue PT treatment. Plan of Care Interventions Electrical Stimulation,Hot Pack/Cold Pack,Manual Therapy,Neuro Re-education,Patient/Caregiver Education,Therapeutic Activities,Therapeutic Exercise,Other Other Interventions taping PT Services Indicated Yes Treatment Frequency and 1-2x/wk for 8 visits Duration These treatments will address the objective and functional deficits as defined above. The patient will be advanced safely and appropriately in order for the patient to progress towards his/her prior level of function. Additional exercises will be introduced and as well as a comprehensive home exercise program upon discharge, if needed, ?to ensure carryover of functional gains achieved in the clinic. This treatment plan has been reviewed and agreement upon by the patient.
--- NOTE | 2024-09-24 12:21 | PCPTNOTE ---
Cx due weather/snow,ice. AKS
--- NOTE | 2024-10-07 13:22 | OPREHPOC ---
Outpatient Therapy Plan of Care This is a Multidisciplinary Plan of Care that may contain components documented by all disciplines (PT, OT, and ST.) PT Problem 1 PT Problem #1 Knowledge Deficit PT Goal 1 Goal / Goal Update *indep with HEP 08-30-24 progress goal met; continue towards goal to progress education 10-07-24 progress goal met, continue to progress HEP Target Visit 22 PT Problem 2 PT Problem #2 Pain PT Goal 1 Goal / Goal Update 1* decrease pain to 5/10 at worst 2* self assessment Oswestry rating of 28% limitation in activity level 3* pt report standing/walking tolerance of 20 minutes 08-30-24 progress goals 1,3 met; NEW GOALS: 1* pain rating at worst 3/10 2* radicular pain into R LE to knee at worst 3* Oswestry rating of 30% limitation in activity level 10-07-24 progress goals 2,3 met NEW GOALS: 1* pain rating of 5/10 at worst 2* walking/standing tolerance of 40 minute Target Visit 22 PT Problem 3 PT Problem #3 Impaired Strength PT Goal 1 Goal / Goal Update increase trunk and hip strength, for improved gait and mobility skills: 1* sit/stand without use of UE's from 18 seat x 5 reps 2* static stand without UE support x 80 seconds 08-30-24 progress met goal1, #2 improved to 70 seconds NEW GOALS: 1* static stand without use of UE and trunk & hips upright x 1 min & 40 seconds 2* up/down 12 steps with one hand railing and single step pattern, without laboring 10-07-24 progress goals met NEW GOALS: 1* static stand with R/L shoulder flexion ~ 100' x 15 reps each 2* static standing time, without UE support x 3 minutes & 10 seconds Target Visit 22 PT Problem 4 PT Problem #4 Impaired Functional Mobility PT Goal 1 Goal / Goal Update 1* 5 reps sit/stand time of 24 seconds 2* 2 minute walking test distance, with cane, 300' 08-30-24 progress goal 1 met NEW GOALS 1* 5 reps sit/stand time of 18 seconds 2* 2 minute walking test distance of 200' with cane 10-07-24 progress goals not met NEW GOAL: 1* 2 minute walking test distance of 200' with cane Target Visit 22
--- NOTE | 2024-10-07 13:22 | PTOPPROG ---
Assessment and note entered by Angelika Grande, PT Assessment Status Progress ICD-10 Condition Codes (PT) Pain in low back M54.50,Difficulty Walking R26.2, Abnormalities of gait and mobility R26.9,Weakness R53.1 Other ICD-10 Condition Codes ( Z98.890: postprocedural PT) Onset 07-10-24 Subjective Information feel like better with strength of stomach, still have pain in my back; have been doing the exercises at home; no longer have pain in my R leg ; am using the cane all the time - need support to stand upright; do not use the walker at all anymore; want to continue with more therapy Assessment PT Clinical Summary Delisa has received a total of 16 PT sessions. Compared to the last reevaluation: she has improved with less radicular pain, NOW- only into R buttock at worst; reports pain rating of 0-7/10 Oswestry self assessment rating from 36% to 20% limitation in activity level; 5 reps sit/stand time from 22 to 26 seconds, without use of UE, but now able to stand upright and control the transfer; 2 minute walking test distance from 160' to 200' with use of cane; no longer is using the wheeled walker at all; is able to go up/down 12 steps with alternating step pattern with one hand railing and cane; static standing time from 70 seconds to 2 minutes and 40 seconds; static standing with R/L shoulder flexion from 1 rep each to 10- reps before have to sit down; education for HEP and gait training; The goals were partially achieved. Continue PT to further increase strength and mobility, with progression of HEP. Plan of Care Interventions Electrical Stimulation,Hot Pack/Cold Pack,Manual Therapy,Neuro Re-education,Patient/Caregiver Education,Therapeutic Activities,Therapeutic Exercise,Other Other Interventions taping PT Services Indicated Yes Treatment Frequency and 1x/wk x 6 visits Duration These treatments will address the objective and functional deficits as defined above. The patient will be advanced safely and appropriately in order for the patient to progress towards his/her prior level of function. Additional exercises will be introduced and as well as a comprehensive home exercise program upon discharge, if needed, ?to ensure carryover of functional gains achieved in the clinic. This treatment plan has been reviewed and agreement upon by the patient.
--- NOTE | 2024-10-31 12:40 | PCPTNOTE ---
This treatment is being continued on visit number [id number] Please see documentation on both accounts to view progress. Completed interventions, outcomes, and problems have been marked as Inactive to facilitate the copying of the Care plan routine for recurring accounts.
== END 2024-10-28 23:59 | disposition home or self-care (01) ==
LOC: ANHPT 12:30
PROVIDERS: PCP Family Medicine; Visit Provider Neurological Surgery
DX: Z47.89 Encounter for other orthopedic aftercare (principal); M54.50 Low back pain, unspecified; R26.2 Difficulty in walking, not elsewhere classified; Z98.890 Other specified postprocedural states
CPT/HCPCS: 97014; 97110; 97116; 97140; 97161; 97530; G0283

== ENCOUNTER 2024-11-14 14:36 | Outpatient (CLI) | payer MEDICARE, OTHER, SELFPAY | END 2024-11-14 14:37 | disposition home or self-care (01) | PROVIDERS: PCP Family Medicine; Visit Provider Neurological Surgery | DX: M51.369 Other intervertebral disc degeneration, lumbar region without mention of lumbar back pain or lower extremity pain (principal); M47.816 Spondylosis without myelopathy or radiculopathy, lumbar region; G62.9 Polyneuropathy, unspecified; Z98.890 Other specified postprocedural states; Z98.1 Arthrodesis status | CPT/HCPCS: 72082; 72110; 72148 ==

== ENCOUNTER 2024-11-20 12:30 | Outpatient (RCR) | payer MEDICARE, OTHER, SELFPAY ==
--- NOTE | 2024-10-31 12:39 | PCPTNOTE ---
This treatment is being continued from visit number [id number] Please see documentation on both accounts to view progress. Completed interventions, outcomes, and problems have been marked as Inactive to facilitate the copying of the Care plan routine for recurring accounts.
--- NOTE | 2024-11-20 13:26 | PTOPDC ---
Assessment and note entered by Angelika Grande, PT Assessment Status Discharge ICD-10 Condition Codes (PT) Pain in low back M54.50,Difficulty Walking R26.2, Abnormalities of gait and mobility R26.9,Weakness R53.1 Other ICD-10 Condition Codes ( Z98.890: postprocedural PT) Onset 07-10-24 Subjective Information feel like legs are still weak; going to have an EMG for hands and feet in December; using the cane all the time with walking, cannot walk without support-- if do not have cane, but hands on thighs or hold onto furniture; am doing the stairs OK, can do them alternating steps; Reported Pain Level Pain Score Self Report Additional Pain Score Comments pain range in the past week -04/27; no pain in legs, stays all in the back; increase pain: standing/walking with in home tasks 15 minutes decrease pain: rest, sitting is not taking any pain meds Assessment PT Clinical Summary Delisa has received 22 PT appointments. Compared to the last reassessment: pain from 0-7/ 10 to 1-8; radicular pain in R buttock to NO radicular pain--all low back now; Oswstry self assessment 20 to 24% limitation in activity level; reported standing/walking tolerance with light home tasks of 15 minutes; static standing time without assistive device, from 2 minutes & 40 seconds to 4 minutes and 20 seconds; 5 reps sit/ stand time from 26 to 21 seconds, without use of UE; standing R/L shoulder flexion x 20 reps without device and maintain good standing balance; 2 minute walking test distance with cane from 200' to 225', both with pain of 3/10 after walking education for HEP and posture/body mechanics. The goals were partially achieved. Discharge PT services. She is to continue with her HEP and walking/activity as tolerated. Plan of Care PT Services Indicated No
== END 2025-01-14 09:39 | disposition home or self-care (01) ==
LOC: ANHPT 12:30
PROVIDERS: PCP Family Medicine; Visit Provider Neurological Surgery
DX: Z47.89 Encounter for other orthopedic aftercare (principal); M54.50 Low back pain, unspecified; R26.2 Difficulty in walking, not elsewhere classified; Z98.890 Other specified postprocedural states
CPT/HCPCS: 97014; 97110; 97140; 97530; G0283

== ENCOUNTER 2024-12-17 09:04 | Outpatient (CLI) | payer MEDICARE, OTHER, SELFPAY ==
--- OUTSIDE RECORDS SUMMARY | 2024-12-17 09:33 | XMS_ITS | Clinical Summary ---
Author Organization [facility] [place] [address] Address [address] [place] [address] Care Team Providers Care Corporate Manager Name Role Phone Liz Armenta MD Primary Care Provider [phone] Allergies Active Allergy Reactions Criticality Noted Date Comments Lgemddb-Afu-Evk Reductase Inhibitors Muscle pain Medium Medications rosuvastatin (CRESTOR) 5 mg tablet TAKE 1 TABLET(5 MG) BY MOUTH DAILY 30 tablet 11 3 Active meclizine (ANTIVERT) 25 mg tablet TAKE 1 TABLET BY MOUTH TWICE DAILY NEEDED FOR DIZZINESS 4 Active diltiazem (TIAZAC) 120 mg 24 hr capsule TAKE 1 CAPSULE(120 MG) BY MOUTH DAILY 90 capsule [address] (PROTONIX) 40 mg EC tabletIndicatio ns:Mild acid reflux Take 1 tablet (40 mg total) by mouth daily 90 tablet 4 Active sotaloL (BETAPACE) 80 mg tablet TAKE 1 TABLET(80 MG) BY MOUTH TWICE DAILY 180 tablet 1 4 Active Eliquis 5 mg tablet TAKE 1 TABLET(5 MG) BY MOUTH TWICE DAILY 180 tablet 1 5 Active losartan (COZAAR) 100 mg tablet Take 1 tablet (100 mg total) by mouth daily 30 tablet 2 5 09/25/19 26 Active Active Problems Problem Noted Date Diagnosed Date Dizziness 06/16/2023 Cough 09/07/2022 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 Mixed hyperlipidemia 09/15/2021 SOB (shortness of breath) 09/15/2021 Statin myopathy 11/12/2019 Encounter for monitoring sotalol therapy 019 Paroxysmal atrial fibrillation 10/19/2017 Chronic anticoagulation 10/19/2017 Palpitations 04/12/2017 Other chest pain 06/23/2016 Overview (12/23/2016): Chest pain at rest Pre-syncope 12/29/2015 Overview (12/23/2016): Near syncope Benign hypertension 12/29/2015 Overview (12/23/2016): HTN (hypertension), benign Elevated creatine kinase level 06/17/2015 Overview (12/23/2016): Elevated CK Statin intolerance 12/15/2014 Overview (12/23/2016): Statin intolerance Muscle pain 09/09/2014 Overview (12/23/2016): Myalgia Resolved Problems Problem Noted Date Diagnosed Date Resolved Date Dyslipidemia 12/29/2015 10/25/2021 Overview (12/23/2016): Mixed dyslipidemia Paroxysmal supraventricular tachycardia 12/29/2015 01/08/2018 Overview (12/23/2016): PSVT (paroxysmal supraventricular tachycardia) Encounters Date Type Department Care Team Description 10/10/2024 1:30 PM STEWARD RACETRACK Office Visit [facility] Cardiology [address] [place] [address] Gregor Leo MD Paroxysmal atrial fibrillation (HCC) (Primary Dx); Benign hypertension; Chronic anticoagulation; Encounter for monitoring sotalol therapy; Statin myopathy from Last 3 Months Surgical History Surgery Date Site/Laterality Comments HYSTERECTOMY approx 40 years ago BACK SURGERY 07/10/[address] [facility] [address] Munoz Medical History Medical History Date Comments Hx Other Medical Arrhythmias (PS VT) Hypertension Hypertension Gastroesophageal reflux disease GERD Migraines Family History Medical History Relation Name Comments Cancer Father Vj Abbott Lung cancer Father Vj Abbott Cancer, lung; Cause of : Cancer, lung Hypertension Mother Luann Hypertension; C ause of : Hypertension Heart attack Sister Larissa Relation Name Status Comments Father Vj Abbott (Age 65) Mother Luann (Age 93) Sister Larissa Social History Tobacco Use Types Packs/Day Years Used Date Smoking Tobacco: Former Cigarettes Smokeless Tobacco: Never Tobacco Cessation:Counseling Given: Not Answered Alcohol Use Standard Drinks/Week Comments Yes 0 (1 standard drink = 0.6 oz pur e alcohol) Comments Unknown Sex and Gender Information Value Date Recorded Sex Assigned at Not on file Legal Sex Female 9:08 PM STEWARD RACETRACK Gender Identity Female 04/15/2021 5:46 PM CDT Sexual Orientation Not on file Obstetrics History Last Filed Vital Signs Vital Sign Reading Time Taken Comments Blood Pressure 138/56 10/10/2024 1:37 PM STEWARD RACETRACK Pulse 74 10/10/2024 1:37 PM STEWARD RACETRACK Temperature - - Respiratory Rate 14 04/12/2017 11:4 2 AM CDT Oxygen Saturation 98% 10/10/2024 1:37 PM STEWARD RACETRACK Inhaled Oxygen Concentration - - Weight 56.7 kg (124 lb 14.4 oz) 10/10/2024 1:37 PM STEWARD RACETRACK Height 152.4 cm (5') 10/10/2024 1:37 PM STEWARD RACETRACK Body Mass Index 24.39 10/10/2024 1:37 PM STEWARD RACETRACK Plan of Treatment Health Maintenance Due Date Last Done Comments Depression Screening 1940 Fall Risk Assessment 1940 Osteoporosis Screening-Bone Density Scan 1940 Hepatitis B Screening 1958 Pneumococcal vaccine 65+ (1 of 1 - PCV) 1990 Zoster Vaccine (1 of 2) 1990 Well Visit 65+ 2005 DTaP/Tdap/Td Vaccine (1 - Tdap) 03/09/2012 2 Influenza Vaccine (Season Ended) 2025 07/12/20 18, 06/18/2017 Procedures Procedure Name Priority Date/Time Associated Diagnosis Comments COMPREHENSIVE METABOLIC PANEL Routine 10/12/2024 12:36 PM STEWARD RACETRACK Encounter for monitoring sotalol therapy ELECTROCARDIOGRAM REPORT Routine 025 3:01 PM STEWARD RACETRACK Paroxysmal atrial fibrillation (HCC) Encounter for monitoring sotalol therapy from Last 3 Months Results * (ABNORMAL) Comprehensive metabolic panel (10/12/2024 12:36 PM STEWARD RACETRACK) Glucose 125(H) 65 - 99 mg/dL [facility] Comment: Fasting reference interval For someone without known diabetes, a glucose value between 100 and 125 mg/dL is consistent with prediabetes and should be confirmed with a follow-up test. BUN 22 7 - 25 mg/dL [facility] Creatinine 0.97(H) 0.60 - 0.95 mg/dL [facility] eGFR 58(L) > OR = 60 mL/min/1.7 3m2 [facility] BUN/creat ratio 23(H) 6 - 22 (calc) [facility] Sodium 139 135 - 146 mmol/L [facility] Potassium, pl 4.3 3.5 - 5.3 mmol/L [facility] Chloride 103 98 - 110 mmol/L [facility] CO2 29 20 - 32 mmol/L [facility] Calcium 9.7 8.6 - 10.4 mg/dL [facility] Protein, sr 6.5 6.1 - 8.1 g/dL [facility] Albumin 3.9 3.6 - 5.1 g/dL [facility] GLOBULIN 2.6 1.9 - 3.7 g/dL (calc) [facility] Alb/glob ratio 1.5 1.0 - 2.5 (calc) [facility] Bilirubin, total 0.6 0.2 - 1.2 mg/dL [facility] Alk phos 75 37 - 153 U/L [facility] AST 18 10 - 35 U/L [facility] ALT (SGPT) 11 6 - 29 U/L [facility] Blood 10/12/2024 12:3 6 PM STEWARD RACETRACK 10/12/2024 12:37 PM STEWARD RACETRACK [facility] Fariha Leo MD LAB BLOOD ORDERABLES Fi nal Result [facility] [address] [place] [address] * Electrocardiogram Report (10/10/2024 3:01 PM STEWARD RACETRACK) Ripa Fariha Leo MD ECG ORDERABLES Final R esult from Last 3 Months Insurance [address] [facility] MEDICARE T MEDICARE FOR LIFE AET[employer] MEDICARE Care Teams Corporate Manager Relationship Specialty Start Date End Date Liz Armenta MD PCP - General Family Medicine 04/19/21
--- OUTSIDE RECORDS SUMMARY | 2024-12-17 09:33 | XMS_ITS | Clinical Summary ---
Author Organization [facility] Address formerly [facility] [place] [address] Care Team Providers Care Stem Dryer Maintainer Name Role Phone Liz Guillaume MD Primary Care Provider Encounters Date Type Department Care Team Description 12/06/2024 Telephone [facility] Neurology Speciality [address] [phone] Samir Nevarez MD Called To Cancel Office Appt. 11/15/2024 Telephone [facility] Neurology Speciality [address] [phone] Samir Nevarez MD Schedule Test 11/15/[address], [address] [place] [phone] Samir Nevarez MD Referral 11/15/[address], [address] [place] [phone] Samir Nevarez MD Referral from Last 3 Months Social History Tobacco Use Types Packs/Day Years Used Date Smoking Tobacco: Never Assessed Comments Unknown Sex and Gender Information Value Date Recorded Sex Assigned at Not on file Legal Sex Female 8:52 AM RUBBER HEEL AND SOLE PRESS TENDER Gender Identity Not on file Sexual Orientation Not on file Plan of Treatment Health Maintenance Due Date Last Done Comments DTaP, Tdap and Td Vaccines ( 1 - Tdap) 1959 Zoster Vaccines (1 of 2) 1990 Annual Medicare Wellness Visit 2005 Dexa Scan (General) 2005 Pneumococcal Vaccine: 65+ Ye ars (1 of 1 - PCV) 2005 RSV Immunization or 60+ Years (1 - 1-dose 75+ series) 2015 COVID-19 Vaccine (1 - 2023-2 5 season) 2024 PHQ-2 (Physician [place]) 09/18/2024 Meningococcal B Vaccine Aged Out No l onger eligible based on patient's age to complete this topic Meningococcal Vaccine Aged Out No birgit mateo eligible based on patient's age to complete this topic RSV Immunizations Under 20 Months Aged Out No longer eligible based on patient's age to complete this topic Insurance [facility]ET [facility] Care Teams Stem Dryer Maintainer Relationship Specialty Start Date End Date Liz Guillaume MD [address] [place] [address] (work) PCP - General FAMILY PRACTICE 11/15/24
--- OUTSIDE RECORDS SUMMARY | 2024-12-17 09:33 | XMS_ITS | Referral Summary ---
Author Organization [facility] [place] [address] [facility] [address] Address [address] [place] [address] Care Team Providers Care Legal Adviser Name Role Phone Liz Guillaume MD Primary Care Provider [phone] Encounters Date Type Department Care Team Description 10/10/2024 1:30 PM COMPOUNDING ASSISTANT Office Visit [facility] Medical [facility] Cardiology [address] [place] [address] Gregor Leo MD Paroxysmal atrial fibrillation (HCC) (Primary Dx); Benign hypertension; Chronic anticoagulation; Encounter for monitoring sotalol therapy; Statin myopathy from Last 3 Months Allergies Active Allergy Reactions Criticality Noted Date Comments Sbtxtoy-Jqr-Ajh Reductase Inhibitors Muscle pain Medium Medications rosuvastatin [...] 01/08/2018 Overview (12/23/2016): PSVT (paroxysmal supraventricular tachycardia) Social History Tobacco Use Types Packs/Day Years Used Date Smoking Tobacco: Former Cigarettes Smokeless Tobacco: Never Tobacco Cessation:Counseling Given: Not Answered Alcohol Use Standard Drinks/Week Comments Yes 0 (1 standard drink = 0.6 oz pur e alcohol) Comments Unknown Sex and Gender Information Value Date Recorded Sex Assigned at Not on file Legal Sex Female 9:08 PM COMPOUNDING ASSISTANT Gender Identity Female 04/15/2021 5:46 PM CDT Sexual Orientation Not on file Last Filed Vital Signs Vital Sign Reading Time Taken Comments Blood Pressure 138/56 10/10/2024 1:37 PM COMPOUNDING ASSISTANT Pulse 74 10/10/2024 1:37 PM COMPOUNDING ASSISTANT Temperature - - Respiratory Rate 14 04/12/2017 11:4 2 AM CDT Oxygen Saturation 98% 10/10/2024 1:37 PM COMPOUNDING ASSISTANT Inhaled Oxygen Concentration - - Weight 56.7 kg (124 lb 14.4 oz) 10/10/2024 1:37 PM COMPOUNDING ASSISTANT Height 152.4 cm (5') 10/10/2024 1:37 PM COMPOUNDING ASSISTANT Body Mass Index 24.39 10/10/2024 1:37 PM COMPOUNDING ASSISTANT Plan of Treatment Not on file Procedures Procedure Name Priority Date/Time Associated Diagnosis Comments COMPREHENSIVE METABOLIC PANEL Routine 10/12/2024 12:36 PM COMPOUNDING ASSISTANT Encounter for monitoring sotalol therapy ELECTROCARDIOGRAM REPORT Routine 025 3:01 PM COMPOUNDING ASSISTANT Paroxysmal atrial fibrillation (HCC) Encounter for monitoring sotalol therapy from Last 3 Months Results * (ABNORMAL) Comprehensive metabolic panel (10/12/2024 12:36 PM COMPOUNDING ASSISTANT) Glucose 125(H) 65 - 99 mg/dL [facility] Blood 10/12/2024 12:3 6 PM COMPOUNDING ASSISTANT 10/12/2024 12:37 PM COMPOUNDING ASSISTANT Gregor Leo MD LAB BLOOD ORDERABLES nal Result [facility] [address] [facility] [place] [address] * Electrocardiogram Report (10/10/2024 3:01 PM COMPOUNDING ASSISTANT) Gregor Leo MD ECG ORDERABLES Final R esult from Last 3 Months Insurance [employer] A[employer]NA MEDICARE [employer] [facility] T MEDICARE Care Teams Legal Adviser Relationship Specialty Start Date End Date Liz Guillaume MD PCP - General Family Medicine 04/19/21
--- NOTE | 2024-12-17 11:30 | NEURO_ITS ---
Impression: # Complains of numbness of all extremities. . ? # Mild to moderate Carpal Tunnel Syndrome, sensory more than motor. ? 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 ? # Needle/EMG exam reveals neurogenic changes distally more then proximally. ? # Clinical correlation recommended. Nerve Conduction Studies Anti Sensory Summary Table ?Stim Site NR Peak (ms) P-T Amp (?V) Site1 Site2 Delta-P (ms) Dist (cm) Eran (m/s) Left Median Anti Sensory (2-3nd Digit) Wrist ? 5.6 11.9 Wrist 2-3nd Digit 5.6 14.0 25 Wrist ? 5.3 18.0 Wrist 2-3nd Digit 5.6 14.0 25 Right Median Anti Sensory (2-3nd Digit) Wrist ? 4.4 18.0 Wrist 2-3nd Digit 4.4 14.0 32 Wrist ? 5.6 15.9 Wrist 2-3nd Digit 4.4 14.0 32 Left Radial Anti Sensory (Base 1st Digit) Wrist ? 2.1 13.6 Wrist Base 1st Digit 2.1 0.0 Right Radial Anti Sensory (Base 1st Digit) Wrist ? 2.5 14.6 Wrist Base 1st Digit 2.5 0.0 Left Sup Fibular Anti Sensory (Ant Lat Mall) 14 cm ? 3.9 9.2 14 cm Ant Lat Mall 3.9 16.0 41 Right Sup Fibular Anti Sensory (Ant Lat Mall)??? NO RESPONSE 14 cm NR 14 cm Ant Lat Mall 16.0 Left Sural Anti Sensory (Lat Mall) Calf ? 3.5 12.9 Calf Lat Mall 3.5 16.0 46 Right Sural Anti Sensory (Lat Mall)??? NO RESPONSE Calf NR Calf Lat Mall 16.0 Left Ulnar Anti Sensory (5th Digit) Wrist ? 2.8 28.1 Wrist 5th Digit 2.8 14.0 50 Right Ulnar Anti Sensory (5th Digit) Wrist ? 2.8 25.7 Wrist 5th Digit 2.8 14.0 50 Motor Summary Table ?Stim Site NR Onset (ms) O-P Amp (mV) Site1 Site2 Delta-0 (ms) Dist (cm) Eran (m/s) Left Median Motor (Abd Poll Brev) Wrist ? 4.1 0.1 Elbow Wrist 4.9 26.0 53 Elbow ? 9.0 4.4 Right Median Motor (Abd Poll Brev) Wrist ? 3.4 4.3 Elbow Wrist 5.0 24.0 48 Elbow ? 8.4 4.3 Left Peroneal Motor (Vastus Med) Ankle ? 4.2 2.7 Popit Ankle 8.4 36.0 43 Popit ? 12.6 2.6 Right Peroneal Motor (Vastus Med) Ankle ? 6.9 0.3 Popit Ankle 8.1 33.0 41 Popit ? 15.0 0.3 Left Tibial Motor (Abd Duran Brev) Ankle ? 4.9 1.6 Knee Ankle 9.5 47.0 49 Knee ? 14.4 0.9 Right Tibial Motor (Abd Duran Brev) Ankle ? 5.3 0.6 Knee Ankle 8.8 36.0 41 Knee ? 14.1 0.7 Left Ulnar Motor (Abd Dig Minimi) Wrist ? 3.2 6.1 A Elbow Wrist 4.7 27.0 57 A Elbow ? 7.9 4.9 Right Ulnar Motor (Abd Dig Minimi) Wrist ? 2.7 5.9 A Elbow Wrist 4.8 27.0 56 A Elbow ? 7.5 4.0 B Elbow Wrist 3.5 20.0 57 B Elbow ? 6.2 3.1 F Wave Studies ?NR F-Lat (ms) L-R F-Lat (ms) Left Median (Mrkrs) (Abd Poll Brev) ? 25.35 0.41 Right Median (Mrkrs) (Abd Poll Brev) ? 25.76 0.41 Left Peroneal (Mrkrs) (EDB) ? 49.22 Right Peroneal (Mrkrs) (EDB)??? DISPERSED RESPONSE NR Left Tibial (Mrkrs) (Abd Hallucis) ? 51.73 Right Tibial (Mrkrs) (Abd Hallucis)??? DISPERSED RESPONSE NR Left Ulnar (Mrkrs) (Abd Dig Min) ? 27.99 0.76 Right Ulnar (Mrkrs) (Abd Dig Min) ? 27.23 0.76 EMG ?Side Muscle Nerve Root Ins Act Fibs Amp Dur Recrt Comment Right 1stDorInt Ulnar C8-T1 Nml Nml Nml Nml Nml Right Ext Indicis Radial (Post Int) C7-8 Nml Nml Nml Nml Nml Right Ext Digitorum Radial (Post Int) C7-8 Nml Nml Nml Nml Nml Right BrachioRad Radial C5-6 Nml Nml Nml Nml Nml Right PronatorTeres Median C6-7 Nml Nml Nml Nml Nml Right Abd Poll Brev Median C8-T1 Nml Nml Incr >12ms +1 Right ABD Dig Min Ulnar C8-T1 Nml Nml Nml Nml Nml Right FlexPolLong Median (Ant Int) C7-8 Nml Nml Nml Nml Nml Right Abd Poll Long Radial (Post Int) C7-8 Nml Nml Nml Nml Nml Right AntTibialis Dp Br Fibular L4-5 Nml Nml Nml Nml Nml Right Gastroc Tibial S1-2 Nml Nml Nml Nml +1 Right Fibularis Long Sup Br Fibular L5-S1 Nml Nml Decr >12ms +1 Right Flex Dig Long Tibial L5-S2 Nml Nml Nml Nml Nml Right Ext Dig Brev Dp Br Fibular L5, S1 Nml Nml Decr >12ms +1 Right QuadratusFem QuadFemoris L4-5, S1 Nml Nml Nml Nml Nml Left AntTibialis Dp Br Fibular L4-5 Nml Nml Nml Nml Nml Left Gastroc Tibial S1-2 Nml Nml Nml Nml Nml Left Fibularis Long Sup Br Fibular L5-S1 Nml Nml Nml Nml Nml Left Flex Dig Long Tibial L5-S2 Nml Nml Nml Nml Nml Left Ext Dig Brev Dp Br Fibular L5, S1 Nml Nml Decr >12ms +1 Left QuadratusFem QuadFemoris L4-5, S1 Nml Nml Nml Nml Nml Left 1stDorInt Ulnar C8-T1 Nml Nml Nml Nml Nml Left Ext Indicis Radial (Post Int) C7-8 Nml Nml Nml Nml Nml Left Ext Digitorum Radial (Post Int) C7-8 Nml Nml Nml Nml Nml Left BrachioRad Radial C5-6 Nml Nml Nml Nml Nml Left PronatorTeres Median C6-7 Nml Nml Nml Nml Nml Left Abd Poll Brev Median C8-T1 Nml Nml Incr >12ms +1 Left ABD Dig Min Ulnar C8-T1 Nml Nml Nml Nml Nml MTDD
== END 2024-12-17 09:05 | disposition home or self-care (01) ==
PROVIDERS: PCP Family Medicine; Visit Provider Neurological Surgery
DX: G62.9 Polyneuropathy, unspecified (principal); Z98.890 Other specified postprocedural states; G56.03 Carpal tunnel syndrome, bilateral upper limbs
CPT/HCPCS: 95886; 95913

== ENCOUNTER 2025-07-17 08:48 | Outpatient (CLI) | payer MEDICARE, OTHER, SELFPAY ==
--- OUTSIDE RECORDS SUMMARY | 2024-07-16 08:15 | XMS_ITS ---
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 The plan is as follows: Patient will continue exercise therapy regimen. Assessment is unchanged from 06/04/24 except as denoted below. Plan Of Treatment Treatment Notes Assessment Notes Other Notes: Significant time was spent due to complex decision-making as a result of the patient's complicated pain issues. The plan is as follows: Patient will continue exercise therapy regimen. Next Appt Details Provider Name:Nadine alvarado, 07/22/2025 10:15:00 AM, [address] [place], [address], Progress Notes * GLENYS DarielMelissaOB: [birth year] (84 yo F)Acc No.[id number]:07/16/2024 Progress Notes Patient: Dariel JAYhel Provider: LUZ MARINA Merida :1940 A ge:83 Y S ex:Female Date:07/16/2024 [id number] Pcp:INO ARMENTA MD Subjective: * Chief Complaints: * 1 . 6 week. * HPI: C omplaints: On a scale of 1-10 how would you rate your pain today? Patient reports pain rated at a level Where is your pain today? Patient reports pain located How would you describe your pain, is it aching, stabbing, dull, sharp or burning? Patient reports Is there anything that you do that makes the pain better? Patient reports the pain decreases with Is there anything that you do that makes the pain worse? Patient reports the pain increases with How many hours of sleep a night would you say you're getting? Patient reports obtaining hours of sleep per night. Is the pain causing you to wake up at night, if so how often? Patient reports What medications are you currently taking for pain and how often are you taking them? Patient reports taking Have you had any injections recently and if you have, how much relief have you gotten from those? Patient reports Has your mood been effected by pain? Patient reports . * Medical History: Objective: * Vitals: * Examination: G eneral Examination: P hysical exam is unchanged from 06/04/24 except as denoted below. GENERAL APPEARANCE: well developed, well nourished, alert, and cooperative; in no apparent distress HEAD: normocephalic, atraumatic EYES: sclera non-icteric, extra ocular eye movements intact CHEST: respiratory rate normal, no signs of respiratory distress SKIN: no suspicious lesions, no rashes, no edema NEURO: Normal speech; walking unassisted without a cane or a walker. Assessment: * Assessment: Assessment is unchanged from 06/04/24 except as denoted below. Plan: * Treatment: * * Electronic signature of LUZ MARINA Alvares on 07/17/2025 at 09:09 AM CDT Sign off status: Pending * Provider: LUZ MARINA Merida Date: Generated for Olga palmer/Ana/Carrie on: 09:09 AM CDT History and Physical Notes * Examination Category Sub-Category Detail Notes Category Not es General Examination Physical exam is unchanged from 06/04/24 except as denoted below. GENERAL APPEARANCE: well developed, well nourished, alert, and cooperative; in no apparent distress HEAD: normocephalic, atraumatic EYES: sclera non-icteric, extra ocular eye movements intact CHEST: respiratory rate normal, no signs of respiratory distress SKIN: no suspicious lesions, no rashes, no edema NEURO: Normal speech; walking unassisted without a cane or a walker
--- OUTSIDE RECORDS SUMMARY | 2025-05-01 05:45 | XMS_ITS ---
Author Organization [facility] Address [address] [place] [address] Care Team Providers Care Supervisor [place] Name Role Phone INO ARMENTA MD Primary Care Provider UnavailAngel Figueroa Unavailable [phone] Chantal Austin Unavailable [phone] REASON FOR VISIT assess left leg pain Medications Medication SIG (Take, Route, Frequency, Duration) Notes Start Date End Date Status Tylenol 325 MG 2 tablets Orally as needed infrequently 12/26/2023 Active Meclizine HCl 25 MG TAKE 1 TABLET BY DULCE TWICE DAILY NEEDED FOR DIZZINESS Oral for 30 Active dilTIAZem HCl ER Beads 120 MG Oral for 90 Active Rosuvastatin Calcium 5 MG 1 tablet Oral every other day for 90 days Active Eliquis 5 mg 1 tablet Orally once a day for 30 days Active Losartan Potassium 100 MG 1 tablet Oral Once a day for 90 days Active Encounters Encounter Location Date Provider Diagnosis [facility] [address] 05/01/2025 Austin Cornejo Bursitis of left hip M70.72 and LUMBAR SPINAL STENOSIS W/O CLAUDICATION M48.061 Assessments Encounter Date Diagnosis (ICD Code) Assessment Notes Treatment Notes Treatment Clinical Notes Section Notes 05/01/2025 Bursitis of left hip (ICD-10 - M70.72) Assessment is unchanged from 06/04/24 except as denoted below. 05/01/2025 LUMBAR SPINAL STENOSIS W/O CLAUDICATION (ICD-10 - M48.061) Assessment is unchanged from 06/04/24 except as denoted below. 05/01/2025 Other Notes: Significant time was spent due to complex decision-making as a result of the patient's complicated pain issues. The plan is as follows: Patient will continue exercise therapy regimen. Reviewed pt's consult notes from Dr. Acevedo' office (see scanned in documents for further details). We will schedule the patient for a left TB steroid injection to target their LEFT hip pain stemming from trochanteric bursitis. Discussed procedure details, risks, benefits, alternatives and expected outcomes with the patient. The patient expresses understanding. All patient questions were answered to their satisfaction. We will consider additional injections after assessing the pt's improvement from the upcoming TB injection. Discussed with pt about proper tylenol dosage. Advised pt that she can take up to 2 extra strength tylenol tablets (500mg) 3 times per day for a total of 3000mg per day. Advised pt to not exceed this amount due to risks of liver toxicity. Pt expresses understanding and denies a hx of kidney or liver disease. We will not add or change any medications at this time as the patient is currently tolerating all medications with no significant side effects. Advised pt to contact clinic if they develop any new/worsening symptoms or pain The total encounter time for today's visit was 30 minutes which was spent on preparation for the visit, e.g. chart review, and in the activities documented in this note. Please refer back to the HPI and physical exam sections of this note for further details regarding this encounter. Assessment is unchanged from 06/04/24 except as denoted below. Plan Of Treatment Treatment Notes Assessment Notes Other Notes: Significant time was spent due to complex decision-making as a result of the patient's complicated pain issues. The plan is as follows: Patient will continue exercise therapy regimen. Reviewed pt's consult notes from Dr. Acevedo' office (see scanned in documents for further details). We will schedule the patient for a left TB steroid injection to target their LEFT hip pain stemming from trochanteric bursitis. Discussed procedure details, risks, benefits, alternatives and expected outcomes with the patient. The patient expresses understanding. All patient questions were answered to their satisfaction. We will consider additional injections after assessing the pt's improvement from the upcoming TB injection. Discussed with pt about proper tylenol dosage. Advised pt that she can take up to 2 extra strength tylenol tablets (500mg) 3 times per day for a total of 3000mg per day. Advised pt to not exceed this amount due to risks of liver toxicity. Pt expresses understanding and denies a hx of kidney or liver disease. We will not add or change any medications at this time as the patient is currently tolerating all medications with no significant side effects. Advised pt to contact clinic if they develop any new/worsening symptoms or pain The total encounter time for today's visit was 30 minutes which was spent on preparation for the visit, e.g. chart review, and in the activities documented in this note. Please refer back to the HPI and physical exam sections of this note for further details regarding this encounter. Next Appt Details Provider Name:Nadine Theodore Khoa pher, 07/22/2025 10:15:00 AM, [address] [place], [address], Progress Notes * Dariel VERONICAMelissaOB: [birth year] (84 yo F)Acc No.[id number]:05/01/2025 Progress Notes Patient: Delisa JAY Provider: LUZ MARINA Merida :1940 A ge:84 Y S ex:Female Date:05/01/2025 Address:[address] [place], [place] [id number] Pcp:INO ARMENTA MD Subjective: * Chief Complaints: * 1 . Assess left leg pain. * HPI: C omplaints: On a scale of 1-10 how would you rate your pain today? Patient reports pain rated at a level 3 Where is your pain today and how long has the pain been present? Patient reports pain located in the left lateral hip and leg; pain has been waxing and waning for many months How would you describe your pain, is it aching, stabbing, dull, sharp or burning? Patient reports shooting Is there anything that you do that makes the pain better? Patient reports the pain decreases with sitting Is there anything that you do that makes the pain worse? Patient reports the pain increases with standing/walking What daily activities does your pain make more difficult? Patient reports anything requiring standing/walking How many hours of sleep a night would you say you're getting? Patient reports obtaining 6 hours of sleep per night. Is the pain causing you to wake up at night, if so how often? Patient reports no What medications are you currently taking to manage the pain and how long have you been taking these medications? Patient reports taking tylenol PRN Have you had any injections recently and if you have, how much relief have you gotten from those? Patient reports no recent injections Have you had any recent falls? Patient reports no pt did F/[place]. Katya Acevedo [facility] and had an L4/5 laminectomy in 07/11 with improvement of her RLE symptoms. pt notes Dr. Acevedo recommended [facility] a possible lumbar CHERI and TB injection. pt denies additional complaints at this time. * Medical History: * Medications: T aking Eliquis 5 mg Tablet 1 tablet Orally once a day , Taking Rosuvastatin Calcium 5 MG Tablet 1 tablet Oral every other day , Taking Losartan Potassium 100 MG Tablet 1 tablet Oral Once a day , Taking dilTIAZem HCl ER Beads 120 MG Capsule Extended Release 24 Hour Oral , Taking Meclizine HCl 25 MG Tablet TAKE 1 TABLET BY MOUTH TWICE DAILY NEEDED FOR DIZZINESS Oral , Taking Tylenol 325 MG Tablet 2 tablets Orally as needed infrequently Objective: * Vitals: * Examination: G eneral [...] rashes, no edema NEURO: Normal speech; walking assisted with a cane Back: -No SI tenderness -No facet tenderness -No disc space tenderness -Left TB tenderness -Left ITB tenderness BLE: -Can stand on heels and toes. Assessment: * Assessment: 1. B ursitis of left hip - M70.72 (Primary) 2 . L UMBAR SPINAL STENOSIS W/O CLAUDICATION - M48.061 Assessment is unchanged from 06/04/24 except as denoted below. Plan: * Treatment: * Procedure Codes: G 2211 Visit complexity inherent to evaluation and management associated with medical care services that serve as the continuing focal point * * Electronic signature of LUZ MARINA Alvares on 07/17/2025 at 09:09 AM CDT Sign off status: Pending * Provider: LUZ MARINA Merida Date: 0 05/01/2025 Generated for Olga palmer/Ana/eTransmitting on: 1 09:09 AM CDT History and Physical Notes [...] rashes, no edema NEURO: Normal speech; walking assisted with a cane Back: -No SI tenderness -No facet tenderness -No disc space tenderness -Left TB tenderness -Left ITB tenderness BLE: -Can stand on heels and toes
--- OUTSIDE RECORDS SUMMARY | 2025-05-08 06:30 | XMS_ITS ---
Author Organization [facility] Address [address] [place] [address] Care Team Providers Care Aoc Plans Intelligence Officer Name Role Phone INO ARMENTA MD Primary Care Provider Angel Valentin Unavailable [phone] Austin Cornejo Unavailable [phone] REASON FOR VISIT Left Trochanteric Bursa Injection Medications Medication SIG (Take, Route, Frequency, Duration) Notes Start Date End Date Status Losartan Potassium 100 MG 1 tablet Oral Once a day for 90 days Active Eliquis 5 mg 1 tablet Orally once a day for 30 days Active Rosuvastatin Calcium 5 MG 1 tablet Oral every other day for 90 days Active Meclizine HCl 25 MG TAKE 1 TABLET BY DULCE TWICE DAILY NEEDED FOR DIZZINESS Oral for 30 Active Tylenol 325 MG 2 tablets Orally as needed infrequently 12/26/2023 Active dilTIAZem HCl ER Beads 120 MG Oral for 90 Active Encounters Encounter Location Date Provider Diagnosis [facility] [address] [place] [address] 05/08/2025 Austin Cornejo Localized osteoarthr osis of left hip M16.12 Assessments Encounter Date Diagnosis (ICD Code) Assessment Notes Treatment Notes Treatment Clinical Notes Section Notes 05/08/2025 Localized osteoarthrosis of left hip (ICD-10 - M16.12) Plan Of Treatment Next Appt Details Provider Name:Nadine alvarado, 07/22/2025 10:15:00 AM, [address] [place], [address], Progress Notes * Samra VERONICAOB: [birth year] (84 yo F)Acc No.[id number]:05/08/2025 Injection Patient: Delisa JAY Provider: LUZ MARINA Merida :1940 A ge:84 Y S ex:Female Date:05/08/2025 Address:[address] [place] [address], [id number] Pcp:INO ARMENTA MD Subjective: * Chief Complaints: * 1 . Left Trochanteric Bursa Injection. * HPI: C omplaints: PROCEDURE: 1. Trochanteric Bursa injection, on the Left side. 2. Ultrasound imaging guidance for needle placement. DIAGNOSIS: o OA of the hip M16.1 o Bursitis M70.61 MEDICATION USED: 1. Local anesthetic: 2 cc Marcaine 0.5% 2. Steroid: 80mg Depo-medrol (methylprednisolone) for all areas injected SUBJECTIVE: This 84 year old patient presents today for a Left Trochanteric Bursa injection. PROCEDURE DESCRIPTION: After answering questions and obtaining informed consent the patient was placed in an appropriate position. The patient's vitals were taken pre procedure and seen to be appropriate. Ultrasound was used to identify the greater trochanteric bursa and the area of maximal tenderness, then the skin over the area to be injected was cleaned with Betadine prior to each injection. Using a 22 gauge needle, the Right bursa was injected with a total of 80 mg of Depo Medrol and 2 cc of .5% Marcaine after aspiration for blood. The patient tolerated the procedure well. Images were saved and discharge plans were made. COMPLICATIONS: NONE RESULTS: Moderate reduction in pain. PLAN: 1. Follow post procedure instructions and call the office with any questions or concerns. 2. Continue on present medications. 3. Follow up by telephone in a few days and return for follow up appointment within several weeks to check on response to the injection or to repeat the injection and to make any necessary medication adjustment and determine subsequent treatment steps. cancer genetics assistant present during procedure:. * Medical History: * Medications: T aking [...] Orally as needed infrequently Objective: * Vitals: Assessment: * Assessment: 1. L ocalized osteoarthrosis of left hip - M16.12 (Primary) Plan: * Treatment: * Procedure Codes: 2 0611 DRAIN/INJ JOINT/BURSA W/US, Modifiers: LT , J1010 Injection, methylprednisolone acetate, 1 mg, Units: 80.00 , Modifiers: JZ * * Electronic signature of LUZ MARINA Alvares on 07/17/2025 at 09:09 AM CDT Sign off status: Pending * Provider: LUZ MARINA Merida Date: 0 05/08/2025 Generated for Olga palmer/Ana/Carrie on: 1 09:09 AM CDT History and Physical Notes * HPI (History of Present Illness) Category Sub-Category Detail Notes Category Not es Complaints PROCEDURE: 1. Trochanteric Bursa injection, on the Left side. 2. Ultrasound imaging guidance for needle placement. DIAGNOSIS: o OA of the hip M16.1 o Bursitis M70.61 MEDICATION USED: 1. Local anesthetic: 2 cc Marcaine 0.5% 2. Steroid: 80mg Depo-medrol (methylprednisolone) for all areas injected SUBJECTIVE: This 84 year old patient presents today for a Left Trochanteric Bursa injection. PROCEDURE DESCRIPTION: After answering questions and obtaining informed consent the patient was placed in an appropriate position. The patient's vitals were taken pre procedure and seen to be appropriate. Ultrasound was used to identify the greater trochanteric bursa and the area of maximal tenderness, then the skin over the area to be injected was cleaned with Betadine prior to each injection. Using a 22 gauge needle, the Right bursa was injected with a total of 80 mg of Depo Medrol and 2 cc of .5% Marcaine after aspiration for blood. The patient tolerated the procedure well. Images were saved and discharge plans were made. COMPLICATIONS: NONE RESULTS: Moderate reduction in pain. PLAN: 1. Follow post procedure instructions and call the office with any questions or concerns. 2. Continue on present medications. 3. Follow up by telephone in a few days and return for follow up appointment within several weeks to check on response to the injection or to repeat the injection and to make any necessary medication adjustment and determine subsequent treatment steps. cancer genetics assistant present during procedure:
--- OUTSIDE RECORDS SUMMARY | 2025-06-03 07:00 | XMS_ITS ---
Author Organization [facility] Address [address] [place] [address] Care Team Providers Care Facing Machine Operator Name Role Phone INO ARMENTA MD Primary Care Provider Angel Valentin Unavailable [phone] Nadine Aguilar Unavailable [phone] Allergies Allergen (clinical drug ingredient) Drug/Non Drug Allergy documented on EMR Reaction Allergy Type Onset Date Status Substance with sulfonamide structure and antibacterial mechanism of action (substance) Sulfa Antibiotics Unknown Drug Allergy Active REASON FOR VISIT Right Lumbar Four Lumbar Five Lumbar Five Sacral One Facet Joint Injection Diagnostic Medications Medication SIG (Take, Route, Frequency, Duration) Notes Start Date End Date Status Losartan Potassium 100 MG 1 tablet Oral Once a day for 90 days Active Rosuvastatin Calcium 5 MG 1 tablet Oral every other day for 90 days Active Meclizine HCl 25 MG TAKE 1 TABLET BY DULCE TH TWICE DAILY NEEDED FOR DIZZINESS Oral for 30 Active dilTIAZem HCl ER Beads 120 MG Oral for 90 Active Tylenol 325 MG 2 tablets Orally as needed infrequently 12/26/2023 Active Eliquis 5 mg 1 tablet Orally once a day for 30 days Active Encounters Encounter Location Date Provider Diagnosis [facility] [address] [place] [address] 06/03/2025 Nadine Aguilar Lumbar Spondylosis without Myelopathy M47.816 Assessments Encounter Date Diagnosis (ICD Code) Assessment Notes Treatment Notes Treatment Clinical Notes Section Notes 06/03/2025 Lumbar Spondylosis without Myelopathy (ICD-10 - M47.816) Plan Of Treatment Next Appt Details Provider Name:Nadine alvarado, 07/22/2025 10:15:00 AM, [address] [place], [address], Progress Notes * Samra VERONICAOB: [birth year] (84 yo F)Acc No.[id number]:06/03/2025 Injection Patient: eDlisa JAY Provider: Dhaval Aguilar MD :1940 A ge:84 Y S ex:Female Date:06/03/2025 Address:[address] [place], [place] [id number] Pcp:INO ARMENTA MD Subjective: * Chief Complaints: * 1 . Right Lumbar Four Lumbar Five Lumbar Five Sacral One Facet Joint Injection Diagnostic. * HPI: C omplaints: PROCEDURE: 1. Facet joint injection at L4-5 L5-S1 on the right. 2. Fluoroscopic imaging for needle placement. 3. Radiographic interp retation: Lumbar Spine. DIAGNOSIS: Lumbar Spondylosis MEDICATION USED: 1. Facet joint local anesthetic: 2ml Bupivacaine 0.5% 2. Epidural local anesthetic: 5 ml Lidocaine 1% 3. Steroid: 80mg Depomedrol (methylprednisolone) 4. Contrast agent: 3 ml Omnipaque-300 SUBJECTIVE: This patient presents today for a right L4-5 L5-S1 facet joint injection. PROCEDURE DESCRIPTION: Informed consent for the procedure was obtained and the patient signed the procedure consent form. The patient was given sufficient time to ask questions related to the procedure and to discuss expectations and the overall plan of treatment. The patient was brought into the procedure room and placed in the appropriate position for the procedure as noted above. Betadine (or alcohol if the patient carried an iodine allergy history) was used to prepare the skin over the appropriate location for the injection and sterile drapes were applied. Strict aseptic technique was followed during the procedure. The patient was brought into the procedure room and placed in the appropriate position for the procedure above. An initial RADIOLOGIC EXAMINATION, of the facet JOINTS; LESS THAN THREE VIEWS was performed with a c-arm fluoroscope. The initial survey found moderate degenerative changes noted through the FACET joint. A 22 Ga spinal needle was used for the procedure. This was advanced from a lateral position and angled into the joint under oblique fluoroscopic views used to sharpen joint margins. Once needle placement was confirmed within the joint, the arthrogram was performed and reported below. Then the patient received the steroid and local anesthetic as noted for each joint injected above after careful aspiration for blood. The patient had no ill effects from the procedure. Vital signs were monitored and found to be stable throughout. The patient was taken to and watched in the recovery area for an appropriate period of time and then released to home in the care of a responsible adult once discharge criteria were met and discharge planning/subsequent appointments were made. FLUOROSCOPIC IMAGING FINDINGS: An initial survey of the spine in the area noted was performed with the C-arm fluoroscope. The following were noted: 1. moderate degenerative changes of the lumbosacral spine. JOINT ARTHROGRAM: 1. Contrast was seen to spread evenly within the joint COMPLICATIONS: NONE RESULTS: 100% pain relief achieved PLAN: 1. Follow post procedure instructions and complete post procedure diary. 2. Continue on present medications. 3. Follow up by telephone in a few days and return for follow up appointment within several weeks to check on response to the injection or to repeat the injection and to make any necessary medication adjustment and determine subsequent treatment steps. * Medical History: A Fib. * Medications: T aking Eliquis 5 mg [...] Tablet 2 tablets Orally as needed infrequently * Allergies: S ulfa Antibiotics: Allergy. Objective: * Vitals: Assessment: * Assessment: 1. L umbar Spondylosis without Myelopathy - M47.816 (Primary) Plan: * Treatment: * Procedures: l aminectmy defect noted l45 moderate to advanced spondolitic chages l45 l5s1. * Procedure Codes: 6 4493 INJ PARAVERT F JNT L/S 1 LEV, Modifiers: RT , [place], [address] INJ PARAVERT F JNT L/S 2 LEV, Modifiers: RT , [place], [address] X-RAY EXAM OF SPINE, J1010 Injection, methylprednisolone acetate, 1 mg, Units: 80.00 , Modifiers: JZ * * Electronic signature of Nadine Aguilar MD on 07/17/2025 at 09:08 AM CDT Sign off status: Pending * Provider: Dhaval Aguilar MD Date: 0 06/03/2025 Generated for Olga palmer/Ana/Carrie on: 1 09:08 AM CDT History and Physical Notes * HPI (History of Present Illness) Category Sub-Category Detail Notes Category Not es Complaints PROCEDURE: 1. Facet joint injection at L4-5 L5-S1 on the right. 2. Fluoroscopic imaging for needle placement. 3. Radiographic interp retation: Lumbar Spine. DIAGNOSIS: Lumbar Spondylosis MEDICATION USED: 1. Facet joint local anesthetic: 2ml Bupivacaine 0.5% 2. Epidural local anesthetic: 5 ml Lidocaine 1% 3. Steroid: 80mg Depomedrol (methylprednisolone) 4. Contrast agent: 3 ml Omnipaque-300 SUBJECTIVE: This patient presents today for a right L4-5 L5-S1 facet joint injection. PROCEDURE DESCRIPTION: Informed consent for the procedure was obtained and the patient signed the procedure consent form. The patient was given sufficient time to ask questions related to the procedure and to discuss expectations and the overall plan of treatment. The patient was brought into the procedure room and placed in the appropriate position for the procedure as noted above. Betadine (or alcohol if the patient carried an iodine allergy history) was used to prepare the skin over the appropriate location for the injection and sterile drapes were applied. Strict aseptic technique was followed during the procedure. The patient was brought into the procedure room and placed in the appropriate position for the procedure above. An initial RADIOLOGIC EXAMINATION, of the facet JOINTS; LESS THAN THREE VIEWS was performed with a c-arm fluoroscope. The initial survey found moderate degenerative changes noted through the FACET joint. A 22 Ga spinal needle was used for the procedure. This was advanced from a lateral position and angled into the joint under oblique fluoroscopic views used to sharpen joint margins. Once needle placement was confirmed within the joint, the arthrogram was performed and reported below. Then the patient received the steroid and local anesthetic as noted for each joint injected above after careful aspiration for blood. The patient had no ill effects from the procedure. Vital signs were monitored and found to be stable throughout. The patient was taken to and watched in the recovery area for an appropriate period of time and then released to home in the care of a responsible adult once discharge criteria were met and discharge planning/subsequent appointments were made. FLUOROSCOPIC IMAGING FINDINGS: An initial survey of the spine in the area noted was performed with the C-arm fluoroscope. The following were noted: 1. moderate degenerative changes of the lumbosacral spine. JOINT ARTHROGRAM: 1. Contrast was seen to spread evenly within the joint COMPLICATIONS: NONE RESULTS: 100% pain relief achieved PLAN: 1. Follow post procedure instructions and complete post procedure diary. 2. Continue on present medications. 3. Follow up by telephone in a few days and return for follow up appointment within several weeks to check on response to the injection or to repeat the injection and to make any necessary medication adjustment and determine subsequent treatment steps.
--- OUTSIDE RECORDS SUMMARY | 2025-07-08 06:00 | XMS_ITS ---
Author Organization [facility] Address [address] [place] [address] Care Team Providers Care Author'S Agent Name Role Phone INO ARMENTA MD Primary Care Provider Angel Valentin Unavailable [phone] Nadine Aguilar Unavailable [phone] Allergies Allergen (clinical drug ingredient) Drug/Non Drug Allergy documented on EMR Reaction Allergy Type Onset Date Status Substance with sulfonamide structure and antibacterial mechanism of action (substance) Sulfa Antibiotics Unknown Drug Allergy Active REASON FOR VISIT Left Lumbar Four Lumbar Five Lumbar Five Sacral One Facet Joint Injection Diagnostic Medications Medication SIG (Take, Route, Frequency, Duration) Notes Start Date End Date Status Tylenol 325 MG 2 tablets Orally as needed infrequently 12/26/2023 Active Rosuvastatin Calcium 5 MG 1 tablet Oral every other day for 90 days Active Losartan Potassium 100 MG 1 tablet Oral Once a day for 90 days Active dilTIAZem HCl ER Beads 120 MG Oral for 90 Active Meclizine HCl 25 MG TAKE 1 TABLET BY DULCE TWICE DAILY NEEDED FOR DIZZINESS Oral for 30 Active Eliquis 5 mg 1 tablet Orally once a day for 30 days Active Encounters Encounter Location Date Provider Diagnosis [facility] [address] 07/08/2025 Nadine Aguilar Plan Of Treatment Next Appt Details Provider Name:Nadine alvarado, 07/22/2025 10:15:00 AM, [address] [place] [address], [id number], Progress Notes * Samra VERONICAOB: [birth year] (84 yo F)Acc No.[id number]:07/08/2025 Injection Patient: Delisa JAY Provider: Dhaval Aguilar MD :1940 A ge:84 Y S ex:Female Date:07/08/2025 Address:[address] [place], [place] [id number] Pcp:INO ARMENTA MD Subjective: * Chief Complaints: * 1 . Left Lumbar Four Lumbar Five Lumbar Five Sacral One Facet Joint Injection Diagnostic. * HPI: C omplaints: PROCEDURE: 1. Facet joint injection at L4-5 L5-S1 on the left. 2. Fluoroscopic imaging for needle placement. 3. Radiographic interp retation: Lumbar Spine. DIAGNOSIS: Lumbar Spondylosis MEDICATION USED: 1. Facet joint local anesthetic: 2ml Bupivacaine 0.5% 2. Epidural local anesthetic: 5 ml Lidocaine 1% 3. Steroid: 80mg Depomedrol (methylprednisolone) 4. Contrast agent: 3 ml Omnipaque-300 SUBJECTIVE: This patient presents today for a left L4-5 L5-S1 facet joint injection. PROCEDURE DESCRIPTION: [...] evenly within the joint COMPLICATIONS: NONE RESULTS: ___% pain relief achieved PLAN: 1. Follow post [...] ulfa Antibiotics: Allergy. Objective: * Vitals: Assessment: Plan: * Treatment: * * Electronic signature of Nadine Aguilar MD on 07/17/2025 at 09:09 AM CDT Sign off status: Pending * Provider: Dhaval Aguilar MD Date: Generated for Olga palmer/Ana/Berhaneitting on: 09:09 AM CDT History and Physical Notes * HPI (History of Present Illness) Category Sub-Category Detail Notes Category Not es Complaints PROCEDURE: 1. Facet joint injection at L4-5 L5-S1 on the left. 2. Fluoroscopic imaging for needle placement. 3. Radiographic interp retation: Lumbar Spine. DIAGNOSIS: Lumbar Spondylosis MEDICATION USED: 1. Facet joint local anesthetic: 2ml Bupivacaine 0.5% 2. Epidural local anesthetic: 5 ml Lidocaine 1% 3. Steroid: 80mg Depomedrol (methylprednisolone) 4. Contrast agent: 3 ml Omnipaque-300 SUBJECTIVE: This patient presents today for a left L4-5 L5-S1 facet joint injection. PROCEDURE DESCRIPTION: [...] evenly within the joint COMPLICATIONS: NONE RESULTS: ___% pain relief achieved PLAN: 1. Follow post [...]
--- NOTE | ~2025-07-17 | US_ITS ---
EXAMINATION: US arterial ankle brachial ind DATE: 07/17/2025 09:29 INDICATION: Peripheral vascular disease TECHNIQUE: Segmental pressures and plethysmographic and Doppler waveforms of the brachial and lower extremity arteries were obtained. COMPARISON: None. FINDINGS: Right and left brachial artery pressures of 167 mm Hg and 169 mm Hg, respectively, are concordant (normal difference <= 30 mmHg). The right ankle-brachial index (LYNETTE) is 1.12 (normal >= 0.9-1.0). The right great toe-brachial index (TBI) is 0.61 (normal >= 0.65). Arterial Doppler waveforms demonstrate brisk systolic upstrokes at both right posterior tibial and dorsalis pedis arteries. The left LYNETTE is 1.02. The left TBI is 0.70. Arterial Doppler waveforms demonstrate brisk systolic upstrokes at both left posterior tibial and dorsalis pedis arteries. IMPRESSION: 1. Mild arterial occlusive disease to the right lower limb with normal LYNETTE but mildly decreased right TBI. 2. No significant arterial occlusive disease to the left lower limb with normal left LYNETTE and TBI. Reviewed, dictated and finalized at location A.
--- OUTSIDE RECORDS SUMMARY | 2025-07-17 09:09 | XMS_ITS | Clinical Summary ---
Author Organization [facility] [address] Address [address] [place] [address] Care Team Providers Care Fiber Optic Splicer Name Role Phone Liz Armenta MD Primary Care Provider [phone] Allergies Active Allergy Reactions Criticality Noted Date Comments Zxtohpu-Lwu-Aea Reductase Inhibitors Muscle pain Medium Medications meclizine (ANTIVERT) 25 mg tablet TAKE 1 TABLET BY MOUTH TWICE DAILY NEEDED FOR DIZZINESS 09/25/19 24 Active diltiazem (TIAZAC) 120 mg 24 hr capsule TAKE 1 CAPSULE(120 MG) BY MOUTH DAILY 90 capsule 2 01/18/20 25 Active rosuvastatin (CRESTOR) 5 mg tablet Take 1 tablet (5 mg total) by mouth daily 90 tablet 3 02/19/20 25 Active Eliquis 5 mg tablet TAKE 1 TABLET(5 MG) BY MOUTH TWICE DAILY 180 tablet 1 04/10/20 25 Active losartan (COZAAR) 100 mg tablet TAKE 1 TABLET(100 MG) BY MOUTH DAILY 30 tablet 6 06/02/20 25 Active sotaloL (BETAPACE) 80 mg tablet TAKE 1 TABLET(80 MG) BY MOUTH TWICE DAILY 180 tablet 1 06/16/[address] (PROTONIX) 40 mg EC tabletIndicati ons:Mild acid reflux TAKE 1 TABLET(40 MG) BY MOUTH DAILY 90 tablet 3 06/19/[address] (PROTONIX) 40 mg EC tabletIndicati ons:Mild acid reflux TAKE 1 TABLET(40 MG) BY MOUTH DAILY 90 tablet 02/13/20 25 025 Discontinued Active Problems Problem Noted Date Diagnosed Date [...] Encounters Date Type Department Care Team Description 04/25/2025 1:00 PM CDT Office Visit [facility] [address] [place] [address] Kiya Hart NP Paroxysmal atrial fibrillation (HCC); Encounter for monitoring sotalol therapy; Chronic anticoagulation; Benign hypertension; Mixed hyperlipidemia from Last 3 Months Surgical History Surgery Date Site/Laterality Comments HYSTERECTOMY approx 40 years ago BACK SURGERY 07/10/2024 [facility] by Dr. Munoz Medical History Medical History Date Comments Hx Other Medical Arrhythmias (PS VT) Hypertension Hypertension Gastroesophageal reflux disease GERD Migraines Family History Medical History Relation Name Comments Cancer Father Vj Abbott Lung cancer Father Vj Abbott Cancer, lung; Cause of : Cancer, lung Hypertension Mother Luann Hypertension; C ause of : Hypertension Heart attack Sister Larissa Stroke Sister Larissa Relation Name Status Comments Father Vj Abbott (Age 65) Mother Luann (Age 93) Sister Larissa Social History Tobacco Use Types Packs/Day Years Used Date Smoking Tobacco: Former Cigarettes Smokeless Tobacco: Never Alcohol Use Standard Drinks/Week Comments Yes 0 (1 standard drink = 0.6 oz pur e alcohol) Comments Unknown Sex and Gender Information Value Date Recorded Sex Assigned at Not on file Legal Sex Female 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 Gender Identity Female 04/15/2021 5:46 PM CDT Sexual Orientation Not on file Obstetrics History Last Filed Vital Signs Vital Sign Reading Time Taken Comments Blood Pressure 136/58 04/25/2025 1:28 PM CDT Pulse 67 04/25/2025 12:58 PM CDT Temperature - - Respiratory Rate 14 04/12/2017 11:42 AM CDT Oxygen Saturation 99% 04/25/2025 12:58 PM CDT Inhaled Oxygen Concentration - - Weight 54 kg (119 lb) 04/25/2025 12:58 PM CDT Height 152.4 cm (5') 04/25/2025 12:58 PM CDT Body Mass Index 23.24 04/25/2025 12:58 PM CDT Plan of Treatment Health Maintenance Due Date Last Done Comments Depression Screening 1940 Fall Risk Assessment 1940 Osteoporosis Screening-Bone Density Scan 1940 Hepatitis B Screening 1958 Pneumococcal vaccine 65+ (1 of 1 - PCV) 1990 Zoster Vaccine (1 of 2) 1990 Well Visit 65+ 2005 DTaP/Tdap/Td Vaccine (1 - Tdap) 03/09/2012 2 Influenza Vaccine (#1) 2025 07/12/2018, 2016 Procedures Procedure Name Priority Date/Time Associated Diagnosis Comments ECG 12-LEAD Routine 04/25/2025 1:10 PM CDT Encounter for monitoring sotalol therapy from Last 3 Months Results * ECG 12 lead (04/25/2025 1:10 PM CDT) 04/25/2025 1:10 PM CDT Kiya Hart CALL CENTER OPERATIONS MANAGER ECG ORDERABLES Final Res ult from Last 3 Months Insurance [place] T MEDICARE [facility] MEDICARE FOR LIFE [employer] MEDICARE Care Teams Fiber Optic Splicer Relationship Specialty Start Date End Date Liz Armenta MD PCP - General Family Medicine 04/19/21
--- OUTSIDE RECORDS SUMMARY | 2025-07-17 09:09 | XMS_ITS | Patient Health Record ---
Author Organization [facility] Address [address] [place] [address] Care Team Providers Care Chief Technician Name Role Phone INO ARMENTA MD Primary Care Provider Angel Valentin Unavailable [phone] Nadine Aguilar Unavailable [phone] Cornejo Austin Unavailable [phone] Allergies Allergen (clinical drug ingredient) Drug/Non Drug Allergy documented on EMR Reaction Allergy Type Onset Date Status Substance with sulfonamide structure and antibacterial mechanism of action (substance) Sulfa Antibiotics Unknown Drug Allergy Active Reason For Referral No Information Medications Medication SIG (Take, Route, Frequency, Duration) [...] once a day for 30 days Active Social History Tobacco Use: Social History Observation Description Date Details (start date - stop date) Former Smoker NA - NA Alcohol Screening Question Answer Notes Alcoholic drink in the past year Yes Frequency Two to four times a month (2 poi nts) Points 2 Interpretation Negative Screening Question Answer Notes Are you a current smoker? former smoker How long has it been since you last smoked? > 10 years Problems Problem Type SNOMED Code ICD Code Onset Dates Problem Status W/U Status Risk Notes Problem Lumbar spondylosis (414069544) Lumbar spondylosis (M47.816) Active confirmed Problem Solitary sacroiliitis (321540707) Sacroiliitis, not elsewhere classified (M46.1) Active confirmed Problem Degeneration of lumbosacral intervertebral disc (91347019) Other intervertebral disc degeneration, lumbosacral region (M51.37) Active confirmed Problem Degeneration of lumbar intervertebral disc (61747730) Other intervertebral disc degeneration, lumbar region (M51.36) Active confirmed Problem Lumbosacral spondylosis without myelopathy (disorder) (04352605) Spondylosis without myelopathy or radiculopathy, lumbosacral region (M47.817) Active confirmed Problem Lumbosacral spondylosis without myelopathy (81880336) Other spondylosis with radiculopathy, lumbosacral region (M47.27) Active confirmed Encounters Encounter Location Date Provider Diagnosis [facility] [address] [place] [address] 05/01/2025 Austin Cornejo Bursitis of left hip M70.72 and LUMBAR SPINAL STENOSIS W/O CLAUDICATION M48.061 [facility] [address] [place] [address] 05/08/2025 Austin Cornejo Localized osteoarthrosis of left hip M16.12 [facility] [address] [place] [address] 06/03/2025 Nadine Aguilar Lumbar Spondylosis without Myelopathy M47.816 [facility] [place] [address] 05/27/2025 Austin Cornejo Lumbar Spondylosis without Myelopathy M47.816 and Other intervertebral disc degeneration, lumbar region with discogenic back pain only M51.360 [facility] [place] [address] 06/17/2025 Austin Cornejo Lumbar Spondylosis without Myelopathy M47.816 Assessments Encounter Date Diagnosis (ICD Code) Assessment Notes Treatment Notes Treatment Clinical Notes Section Notes 05/01/2025 Bursitis of left hip (ICD-10 - M70.72) Assessment is unchanged from 06/04/24 except as denoted below. 05/01/2025 LUMBAR SPINAL STENOSIS W/O CLAUDICATION (ICD-10 - M48.061) Assessment is unchanged from 06/04/24 except as denoted below. 05/08/2025 Localized osteoarthrosis of left hip (ICD-10 - M16.12) 06/03/2025 Lumbar Spondylosis without Myelopathy (ICD-10 - M47.816) 05/27/2025 Lumbar Spondylosis without Myelopathy (ICD-10 - M47.816) Assessment is unchanged from 05/01/25 except as denoted below. 05/27/2025 Other intervertebral disc degeneration, lumbar region with discogenic back pain only (ICD-10 - M51.360) Assessment is unchanged from 05/01/25 except as denoted below. 06/17/2025 Lumbar Spondylosis without Myelopathy (ICD-10 - M47.816) Assessment is unchanged from 05/27/25 except as denoted below. 05/01/2025 Other Notes: [...] unchanged from 06/04/24 except as denoted below. 05/27/2025 Other Notes: Significant time was spent due to complex decision-making as a result of the patient's complicated pain issues. The plan is as follows: Patient will continue exercise therapy regimen. Will schedule the patient for a right L4/5 and L5/S1 diagnostic facet joint injection to target their axial LBP stemming from lumbar spondylosis. We will plan for a lumbar MB nerve RFA in the future. Discussed procedure details, risks, benefits, alternatives and expected outcomes with the patient. The patient expresses understanding and all patient questions were answered to their satisfaction. Discussed with pt about physical therapy for postural training as the pt has significant kyphosis. The pt defers PT at this time as she states she has done it many times with minimal improvement. Discussed with pt about buying a back brace specifically for her posture. Explained to pt the risks vs benefits of wearing a back brace; Advised pt to not wear the back brace every day due to risks of weaking her core muscles. The pt expresses understanding. We will not add or change any [...] regarding this encounter. Assessment is unchanged from 05/01/25 except as denoted below. 06/17/2025 Other Notes: Significant time was spent due to complex decision-making as a result of the patient's complicated pain issues. The plan is as follows: Patient will continue exercise therapy regimen. Will schedule the patient for a left L4/5 and L5/S1 diagnostic facet joint injection to target their axial LBP stemming from lumbar spondylosis. We will plan for a lumbar MB nerve RFA in the future. Discussed procedure details, risks, benefits, alternatives and expected outcomes with the patient. The patient expresses understanding and all patient questions were answered to their satisfaction. We will not add or change any [...] regarding this encounter. Assessment is unchanged from 05/27/25 except as denoted below. Plan Of Treatment Pending Test Test Name Order Date MRI Lumbar Spine without contrast 2021 MRI Lumbar Spine without contrast 2021 MRI Lumbar Spine without contrast 2021 MRI Lumbar Spine without contrast 2023 Xray Pelvis Complete 3 Views 03/26/2024 Next Appt Details Provider Name:Nadine alvarado, 07/22/2025 10:15:00 AM, [address] [place], [address], Insurance Providers Payer Name Payer Address Payer Phone Subscriber Number Group Number Insured Name Patient Relationship to Insured Coverage Start Date Coverage End Date [employer] Medicare [address] [place] [address] [phone] [id number] Delisa Hirsch Self - patient is the insured [employer] [address] [place] [address] [id number] Delisa Hirsch Self - patient is the insured Medical (General) History Medical History History ICD Code AFib Surgical History Surgery Date(Month/Year) hysterectomy Hospitalization History Reason Date(Month/Year) see above surgeries
== END 2025-07-17 08:49 | disposition home or self-care (01) ==
PROVIDERS: PCP Family Medicine; Visit Provider Family Medicine
DX: I73.9 Peripheral vascular disease, unspecified (principal)
CPT/HCPCS: 93922